=== PATIENT | male | born 1945 | race Caucasian/White ===

== ENCOUNTER 2017-04-10 21:35 | Inpatient (IN) ==
[2017-04-10] MEDS ORDERED: Ipratropium/Albuterol Neb 3 ML IH ONE (21:46)
--- NOTE | 2017-04-10 21:50 | Emergency Department Note ---
Disposition Clinical Impression: COPD exacerbation, Elevated troponin Disposition: Admitted As Inpatient Condition: Good [facility] Provider[facility] - Forms: ED Satisfaction Letter SOB HPI - General Chief Complaint: ED Shortness of Breath/Dyspnea Stated Complaint: Shortness of Breath Time Seen by Provider: 04/10/17 21:39 Source: EMS Mode of arrival: EMS Limitations: no limitations Nursing Notes Reviewed: Yes Vital Signs Reviewed: Yes - History of Present Illness 71-year-old male history of oxygen dependent COPD 4 L continuous, hypertension who presents to the ER due to shortness of breath. Patient states he has developed worsening shortness of breath over the last several days. States he gets more short of breath whenever he is exerting himself or bending over. Patient reports that he was seen in another facility and requested transfer here as [facility] due to his [facility] values. He denies prior history of CAD. He has had some left shoulder discomfort. No fevers at home. No cough. No nausea vomiting or diarrhea. Patient was given a DuoNeb, IV Solu-Medrol, IV fluids and doxycycline prior to arrival. Pt Subjective Complaint: shortness of breath, cough Onset (ago): day(s) Context: recent illness Severity: severe Consistency/Duration: constant Improves with: nothing Worsens with: exertion Known history of: COPD Associated symptoms: Reports: wheezing. Denies: chest pain, fever, cough Treatment prior to arrival: oxygen, bronchodilator Cough present: No Sputum production: No Sputum Amount: None - Related Data Home oxygen amount: 4 liters Home Medications Medication Instructions Recorded Confirmed Acyclovir [Zovirax] 200 mg PO 5XD 06/02/15 06/02/15 Albuterol Sulfate [Albuterol 1 puff IH Q6HR 06/02/15 06/02/15 Inhaler] Aspirin/Calcium Carbonate/Mag 325 mg PO DAILY 06/02/15 06/02/15 [Aspirin Buffered 325 mg Tab] B Complex PO DAILY 06/02/15 Buspirone HCl 10 mg PO BID PRN 06/02/15 06/02/15 Cyclobenzaprine 10 mg PO TID PRN 06/02/15 06/02/15 Formoterol Fumarate 12 mcg BID 06/02/15 06/02/15 Garlic 1 PO DAILY 06/02/15 Lisinopril [Zestril] 40 mg PO DAILY 06/02/15 06/02/15 Metoprolol [Lopressor] 25 mg PO BID 06/02/15 06/02/15 Multivitamin PO DAILY 06/02/15 Neurontin 100 mg PO TID 06/02/15 06/02/15 Omeprazole 20 mg PO BID 06/02/15 06/02/15 PrednisoLONE 10 mg PO DAILY 06/02/15 06/02/15 Pregabalin [Lyrica] 100 mg PO 06/02/15 Promethazine 25 mg PO Q6H PRN 06/02/15 06/02/15 Simvastatin 20 mg PO DAILY 06/02/15 06/02/15 Vitamin C 500 mg PO DAILY 06/02/15 06/02/15 amLODIPine [Norvasc] 5 mg PO DAILY 06/02/15 06/02/15 traZODone [TraZODone] 50 mg PO HS 06/02/15 06/02/15 Previous Rx's Medication Instructions Recorded Aspirin Enteric Coated [Aspirin EC] 81 mg PO DAILY 14 Days tablet. 06/05/15 HYDROcodone/Acet 5/325 mg [[place] 1 tab PO Q6HR PRN #30 tablet 06/05/15 5-325 mg] diazePAM [Valium] 5 mg PO BID #14 tablet 06/05/15 methylPREDNISolone [Medrol] 1 tab PO DAILY #1 packet 06/05/15 Allergies Allergy/AdvReac Type Severity Reaction Status Date / Time codeine AdvReac Heartburn Verified 06/02/15 19:05 All systems ED: reviewed and negative except as stated. Constitutional: Denies: fever Cardiovascular: Denies: chest pain Respiratory: Reports: cough, dyspnea, wheezes. Denies: sputum production Gastrointestinal: Denies: abdominal pain, nausea, vomiting Musculoskeletal: Reports: back pain Past Medical History - Past Medical History Attestation: Yes The following information was validated with the patient. Source: patient Medical history: Reports: arthritis, asthma, COPD, GERD, hypertension, other Psychiatric history: Reports: anxiety, depression - Social History Smoking Status: Former smoker Smokeless Tobacco Status: No Alcohol use: Reports: none Drug use: Reports: none Physical Exam - General Limitations: no limitations General appearance: alert, in no apparent distress - Head Head exam: atraumatic, normocephalic - Eye Eye exam: Present: normal appearance - ENT ENT exam: normal exam - Neck Neck exam: Present: normal inspection, full ROM - Chest Chest inspection: Present: normal inspection, symmetric chest wall rise - Respiratory Respiratory exam: Present: prolonged expiratory phase, other (Diminished breath sounds bilaterally) - Cardiovascular Cardiovascular exam: Present: regular rate, normal rhythm, normal heart sounds - Abdominal Exam Abdominal exam: Present: soft, Non-Tender. Absent: tenderness - Extremities Exam Extremities exam: Present: normal inspection, full ROM - Expanded Upper Extremity Exam Shoulder exam: Present: normal inspection, full ROM Arm exam: Present: normal inspection, full ROM Elbow exam: Present: normal inspection, full ROM Forearm/Wrist exam: Present: normal inspection, full ROM Hand exam: Present: normal inspection, full ROM Vascular exam: Normal: radial pulse - Expanded Lower Extremity Exam Hip/Pelvis exam: Present: normal inspection, full ROM Upper leg exam: Present: normal inspection, full ROM Knee exam: Present: normal inspection, full ROM Lower leg exam: Present: normal inspection, full ROM Ankle exam: Present: normal inspection, full ROM Foot/toe exam: Present: normal inspection, full ROM Neurovascular/Tendon exam: Absent: motor deficit, sensory deficit - Neurological Exam Neurological exam: Present: alert - Psychiatric Psychiatric exam: Present: normal affect - Skin Skin exam: Present: warm, dry, intact Course Course Narrative: Patient seen and examined. I reviewed his prior information showing a chest x- ray with no acute findings. Does have a white count of 14.5. Troponin of 0.08. History chest pain-free. He received aspirin, DuoNeb, Solu-Medrol, IV fluids 1 L prior to arrival. We will order another DuoNeb treatment repeat his labs and admit for COPD exacerbation. Vital Signs Temperature 98.4 F 04/10/17 21:37 Pulse Rate 82 04/10/17 21:37 Respiratory Rate 20 04/10/17 21:37 Blood Pressure 165/83 04/10/17 21:37 O2 Sat by Pulse Oximetry 94 04/10/17 21:37 Temperature 98.4 F 04/10/17 21:37 Pulse Rate 82 04/10/17 21:37 Respiratory Rate 17 04/10/17 22:06 Blood Pressure 165/83 04/10/17 21:37 O2 Sat by Pulse Oximetry 98 04/10/17 22:06 Oxygen Delivery Oxygen Delivery Nasal Cannula Shortness of Breath/Dyspnea - MDM Narrative Medical decision making narrative: Patient presents with several days of shortness of breath and exertional dyspnea. EKG shows no ischemic findings. Chest x-ray from outside facility reported as no acute findings. White count of 14.5 there with a troponin of 0.08. He is currently chest pain-free. Patient given aspirin prior to arrival. Treated with DuoNeb nebs and IV Solu-Medrol. Admitted to the hospitalist service for elevated troponin and COPD exacerbation. - Lab Data Lab results reviewed: Yes I reviewed the patient's lab results. - Radiology Data Radiology results reviewed: Yes I reviewed the patient's radiology results. - EKG Data EKG attestation: Yes I reviewed and interpreted this EKG. EKG results narrative: EKG demonstrates normal sinus rhythm with first-degree AV block with a rate of 94 bpm. Normal axis. Prolonged period of altered 25. Other intervals normal. Normal R-wave progression. T-wave inversions in leads 2, 3, aVF unchanged from previous EKG. No gross ST elevations or depressions. No acute ischemic findings. No significant changes from previous EKG dated 06/03/15. S.B.A.R. - S.B.A.R. Situation: Demographics, MOA Background: Presenting Complaint, Relevant PMH, Meds, & Allergies Assessment: Course and respsone to treatment, Patient/Family Expectation, Pertinant Lab Results, Outstanding Labs Recommendation: Barrier(s) to disposition, Recommendation based on pending studies, treatments, or consults S.B.A.R. Report Given to: Dr. Chang Attestation Statement - Attestation Attestation: I, Jp Dempsey MD, personally evaluated this patient and discussed their management with the resident physician. I reviewed the resident's note and agree with the documented findings, medical decision making, and plan of care. 71-year-old male with history of oxygen-dependent COPD transferred here from [facility] emergency department for exacerbation of COPD. Patient complains of increased shortness of breath for several days. Increased nonproductive cough. Some mild intermittent chest pain but no chest pain at present. Some left shoulder pain and left arm pain intermittently. No fever. [facility] [place] but they would not accept him because he had an elevated troponin during his workup at the other facility. Patient then requested to come to this facility. On examination patient is a well-developed thin elderly male in no acute distress. He is alert and oriented 3. There is no cyanosis or diaphoresis. Chest is nontender to palpation. Breath sounds are markedly decreased bilaterally. No rales or wheezes noted. Heart regular rate and rhythm. Abdomen is soft and nontender with normal bowel sounds. No pedal edema. Labs from the other facility reviewed. Troponin 0.08. Chest x-ray negative. EKG here shows no acute ischemic changes. The hospitalist, Dr. Chang, was consulted and accepted admission of the patient.
[2017-04-10 22:49] LABS: Hematocrit 36.2 % (37.5-50.1); Hemoglobin 11.4 g/dL (12.9-16.9); Immature Granulocytes % 0.5 % (0-4); Lymphocytes % 5.5 %; Mean Corpuscular HGB Conc 31.5 g/dL (31.6-35.5); Mean Corpuscular Volume 69.7 fL (83.0-100.0); Mean Platelet Volume 9.4 fL (9.4-12.4); Monocytes % 0.3 %; Platelet Count 212 K/mcL (140-400); Red Blood Count 5.19 M/mcL (4.19-5.50); Red Cell Distribution Width 16.6 % (11.5-14.5); Segmented Neutrophils % 93.7 %
[2017-04-10 22:54] LABS: INR 1.1; Prothrombin Time 11.6 Seconds (9.4-12.1)
[2017-04-10 22:56] LABS: Lymphocytes # 0.6 K/mcL (0.6-4.6)
[2017-04-10 22:57] LABS: Activated Partial Thrombo Time 27.4 Seconds (26.0-36.0)
[2017-04-10 23:01] LABS: BUN/Creatinine Ratio 18 (6-26); Blood Urea Nitrogen 13 mg/dL (8-26); Calcium 8.9 mg/dL (8.6-10.8); Carbon Dioxide 21 mEq/L (19-29); Chloride 103 mEq/L (98-109); Glucose 154 mg/dL (70-99); Osmolality,Calculated 283 (280-300); Potassium 4.1 mEq/L (3.5-4.5); Sodium 135 mEq/L (136-145); eGFR For African Americans > 60 (> 60); eGFR For Non-African Americans > 60 (> 60)
[2017-04-10 23:15] LABS: Microcytosis Present (Not Present); Platelet Estimate Normal (Normal)
[2017-04-11] MEDS ORDERED: 0.9 % Sodium Chloride 1,000 ML IVC SCH (01:00)
--- NOTE | 2017-04-11 01:06 | Internal Med History&Physical ---
Date of Encounter: 04/11/17 Time of Encounter: 01:04 Assessment and Plan (1) COPD exacerbation Current visit: Yes Status: Acute Acute on chronic hypoxic respiratory failure secondary to acute COPD exacerbation possibly from acute viral bronchitis Continue Solu-Medrol, DuoNeb nebs and oxygen therapy Omeprazole for GI prophylaxis and subcutaneous heparin for DVT prophylaxis. The patient will be admitted for observation. Full code. Time spent on this admission 40 min (2) Elevated troponin Current visit: Yes Status: Acute Likely secondary to demand ischemia Continue aspirin (3) Hypertension Current visit: No Status: Acute Stable Qualifiers: Hypertension type: essential hypertension Qualified Code(s): I10 - Essential (primary) hypertension (4) Paroxysmal atrial fibrillation Current visit: No Status: Acute Offered rate control medications the patient rejected starting any new medications. Risks explained (5) Tobacco use disorder Current visit: No Status: Acute Patient mentioned he quit smoking a few months ago Internal Medicine - H&P: HPI Chief complaint: Shortness of breath Admitted From: Emergency Dept History of present illness: Mr. Rivera is a 71 year old male with a past medical history of COPD oxygen dependent using 4 L at home, depression, hyper tension hyperlipidemia, paroxysmal atrial fibrillation not on anticoagulation who was transferred from [facility] ER 2 [facility] ER after being diagnosed with this acute COPD exacerbation. The patient has been more short of breath for the past few days, he also complains of abdominal pain but says call seem to have more shortness of breath for which he has been taking garlic pills and apparently these are the only things that helped improve his symptoms. He had a CT scan of the chest at [facility] that did not show any new abnormality other than emphysema. Chest x-ray does not show any acute cardiopulmonary disease. Troponin was 0.08 unchanged from the value at [facility]. The patient denies any chest pain at the moment. He signed AGAINST MEDICAL ADVICE in the past from our facility after being recommended cardiac catheterization. Past Med Surg Social Fam HX - Past Medical History Medical history: arthritis, asthma, COPD (Oxygen dependent using 4 L continuously), GERD, hypertension, other (Asbestos exposure, depression, asthma , buccal use, paroxysmal atrial fibrillation not on anticoagulation, systolic dysfunction, diverticulosis, chronic back pain) Psychiatric history: anxiety, depression - Past Surgical History Surgical History: other (Nasal surgery) - Social History Smoking Status: Former smoker Smokeless Tobacco Status: No Alcohol use: none Drug use: none - Family History Father Age at : 70 Cause of : pancreatic cancer Hx Family Cancer: Yes (pancreatic cancer) Mother Age at : 44 Cause of : cardiac Hx Family Cardiac Disorders: Yes Hx Family Respiratory Disorders: Yes Hx Family Cancer: Yes - Additional Family History Additional family history: Mother of a myocardial infarction at the age of 44 Internal Medicine - H&P: Meds Albuterol Sulfate [Albuterol Inhaler] 1 puff IH Q6HR 06/02/15 [History] Aspirin/Calcium Carbonate/Mag [Aspirin Buffered 325 mg Tab] 325 mg PO DAILY [History] B Complex PO DAILY 06/02/15 [History] Garlic 1 PO DAILY 06/02/15 [History] Multivitamin 1 PO DAILY 06/02/15 [History] Omeprazole 20 mg PO BID 06/02/15 [History] Promethazine 25 mg PO Q6H PRN 06/02/15 [History] Simvastatin 20 mg PO DAILY 06/02/15 [History] Vitamin C 500 mg PO DAILY 06/02/15 [History] HYDROcodone/Acet 5/325 mg [[place] 5-325 mg] 1 tab PO Q6HR PRN #30 tablet [Rx] Fish Oil 500 mg BID 04/10/17 [History] Lecithin, Soy [Lecithin Soya] 04/10/17 [History] Vitamin D3 BID 04/10/17 [History] Vitamin E 400 mg PO PRN 04/10/17 [History] clonazePAM [Clonazepam] 0.5 mg PO BID PRN 04/10/17 [History] 3 Allergy/AdvReac Type Severity Reaction Status Date / Time codeine AdvReac Heartburn Verified 06/02/15 19:05 All Systems PM: A 10-system review of systems was performed and is negative for pertinent findings except as documented above in the HPI. Review of systems: Feels weak, no fevers, other systems out of the 10 review were negative - Constitutional Vitals: Temp Pulse Resp BP Pulse Ox 98.1 F 79 18 123/78 97 04/10/17 23:46 04/10/17 23:46 04/10/17 23:46 04/10/17 23:46 04/10/17 23:46 General appearance: Present: A&O X 3 - Head Head exam: Present: atraumatic, normocephalic - Eye Eye exam: Present: PERRL, conjuntiva pink, sclera anicteric Pupils: Present: PERRL - Neck Neck exam general surgery: Present: supple, trachea midline. Absent: lymphadenopathy - Respiratory Respiratory exam: Present: CTAB. Absent: accessory muscle use, rales, rhonchi, wheezes - Cardiovascular Cardiovascular exam: Present: RRR, +S1, +S2. Absent: diastolic murmur, gallop, rubs, systolic murmur - GI/Abdominal GI/Abdominal exam: Present: normal bowel sounds, soft, no peritoneal signs. Absent: distended, tenderness - Extremities Exam Extremities exam: Present: warm, radial pulses palpable and symmetrical. Absent : calf tenderness, cyanotic, pedal edema - Neurological Exam Neurological exam: Present: CN II-XII intact, oriented X3, no focal deficits. Absent: pronater drift, facial droop, speech deficit - Skin Skin exam: Present: dry, intact Internal Med - H&P Results - Labs CBC & Chem 7: 04/10/17 22:41 04/10/17 22:41
[2017-04-11] MEDS ORDERED: Acetaminophen 325 MG TABLET PO PRN (01:11)
[2017-04-11] MEDS ORDERED: Naloxone 0.4 MG/ML INJ IVP PRN (01:11)
[2017-04-11] MEDS ORDERED: Ondansetron 4 MG/2 ML VIAL IVP PRN (01:11)
[2017-04-11] MEDS: *HR* Morphine 2 MG/ML SYRINGE IVP PRN ×2 (01:37→21:50)
[2017-04-11] MEDS: Ipratropium/Albuterol Neb 3 ML IH SCH ×5 (03:23→21:37)
[2017-04-11 04:08] LABS: Hematocrit 34.8 % (37.5-50.1); Hemoglobin 10.8 g/dL (12.9-16.9); Mean Corpuscular Hemoglobin 21.7 pg (28.0-33.3); Mean Corpuscular Volume 69.9 fL (83.0-100.0); Mean Platelet Volume 9.7 fL (9.4-12.4); Platelet Count 208 K/mcL (140-400); Red Blood Count 4.98 M/mcL (4.19-5.50); Red Cell Distribution Width 16.6 % (11.5-14.5)
[2017-04-11 04:25] LABS: BUN/Creatinine Ratio 18 (6-26); Blood Urea Nitrogen 14 mg/dL (8-26); Calcium 8.9 mg/dL (8.6-10.8); Carbon Dioxide 24 mEq/L (19-29); Chloride 105 mEq/L (98-109); Chol/HDL Ratio 2.8 (0-4.9); Glucose 175 mg/dL (70-99); Osmolality,Calculated 293 (280-300); Potassium 4.5 mEq/L (3.5-4.5); Sodium 139 mEq/L (136-145); eGFR For African Americans > 60 (> 60); eGFR For Non-African Americans > 60 (> 60)
[2017-04-11] MEDS: *HR* Heparin 5,000 UNIT/ML VIAL SQ SCH ×3 (06:22→21:49)
[2017-04-11] MEDS: MethylPREDNISolone 40 MG/ML VIAL IVP SCH ×2 (09:46→17:47)
[2017-04-11] MEDS: clonazePAM 0.5 MG TABLET PO PRN ×2 (11:39→17:47)
[2017-04-11] MEDS: *HR* HYDROcodone/Acet 5/325 mg TABLET PO PRN ×2 (11:39→17:48)
--- NOTE | 2017-04-11 16:00 | Event Note ---
Date of Encounter: 04/11/17 Time of Encounter: 16:00 71-year-old male with history of COPD, paroxysmal atrial fibrillation, admitted with worsening shortness of breath. Patient seen and examined at bedside. Reports exertional dyspnea. Does use oxygen at home. Chest-S1, S2 heard. Lungs with bilateral coarse rhonchorous breath sounds. Acute exacerbation of COPD-continue IV steroids, taper down as tolerated. Continue scheduled bronchodilators and supplemental oxygen. Received influenza immunization this year. Chest x-ray shows no evidence of pneumonia. Elevated troponin-reviewed previous troponins, patient noted to have mild troponin elevation around 0.08, likely related to underlying COPD. Continue telemetry monitoring. Paroxysmal atrial fibrillation-patient was recommended anticoagulation and rate control medications in the past, which he refused. Patient continues to have certain ideas regarding his health, refusing most medications and relying on natural/herbal supplements, Epsom salts, etc.
[2017-04-12] MEDS: *HR* HYDROcodone/Acet 5/325 mg TABLET PO PRN ×3 (00:21→13:26)
[2017-04-12] MEDS: MethylPREDNISolone 40 MG/ML VIAL IVP SCH ×3 (00:22→16:12)
[2017-04-12] MEDS: Ipratropium/Albuterol Neb 3 ML IH SCH ×4 (04:35→21:18)
[2017-04-12] MEDS: *HR* Heparin 5,000 UNIT/ML VIAL SQ SCH ×2 (06:47→13:28)
[2017-04-12] MEDS: clonazePAM 0.5 MG TABLET PO PRN ×2 (08:33→19:58)
[2017-04-12 12:25] LABS: Hematocrit 39.8 % (37.5-50.1); Hemoglobin 12.3 g/dL (12.9-16.9); Mean Corpuscular HGB Conc 30.9 g/dL (31.6-35.5); Mean Corpuscular Hemoglobin 21.8 pg (28.0-33.3); Mean Corpuscular Volume 70.6 fL (83.0-100.0); Mean Platelet Volume 9.2 fL (9.4-12.4); Platelet Count 238 K/mcL (140-400); Red Blood Count 5.64 M/mcL (4.19-5.50); Red Cell Distribution Width 17.5 % (11.5-14.5)
[2017-04-12 12:38] LABS: BUN/Creatinine Ratio 25 (6-26); Blood Urea Nitrogen 20 mg/dL (8-26); Calcium 9.8 mg/dL (8.6-10.8); Carbon Dioxide 28 mEq/L (19-29); Chloride 99 mEq/L (98-109); Glucose 117 mg/dL (70-99); Osmolality,Calculated 290 (280-300); Potassium 4.1 mEq/L (3.5-4.5); Sodium 138 mEq/L (136-145); eGFR For African Americans > 60 (> 60); eGFR For Non-African Americans > 60 (> 60)
[2017-04-12] MEDS ORDERED: traZODone 50 MG TABLET PO PRN (15:34)
[2017-04-12] MEDS ORDERED: clonazePAM 0.5 MG TABLET PO ONE (15:51)
--- NOTE | 2017-04-12 16:58 | Internal Med Progress Note ---
Date of Encounter: 04/12/17 Time of Encounter: 16:56 - Assessment and plan (1) COPD (chronic obstructive pulmonary disease) Current Visit: No Status: Acute Assessment and plan: Asher Rivera is a 71-year-old male with past medical history COPD, paroxysmal A. fib and hypertension who presented to [facility] on with complaints of shortness of breath. He was found to be in acute COPD exacerbation and was admitted for further workup and treatment. 1. Acute COPD exacerbation: Current smoker. Wears O2 [id number]. With increasing shortness of breath and wheezing on admission. CXR negative. No increase in sputum production, hold on ATB. Continue IV steroids and DuoNeb's. 2. Elevated troponin: Troponin peaked at 0.08 and trended down. Per chart review patient appears to have chronically elevated troponin. Last stress test 05/2015. Asymptomatic, denies chest pain. Furthermore patient is declining any further testing including a stress test or left heart catheter. He does not want cardiology consult. Monitor on telemetry. 3. Paroxysmal atrial fibrillation: per hx. rate controlled. He refuses anticoagulation. EKG pending. 4. Anxiety: Per history. Patient appears very anxious on exam. Continue home Klonopin. 5. DVT prophylaxis: Heparin Qualifiers: COPD type: COPD with acute exacerbation Qualified Code(s): J44.1 - Chronic obstructive pulmonary disease with (acute) exacerbation (2) Hypertension Current Visit: No Status: Acute Qualifiers: Hypertension type: essential hypertension Qualified Code(s): I10 - Essential (primary) hypertension (3) Paroxysmal atrial fibrillation Current Visit: No Status: Acute (4) Tobacco use disorder Current Visit: No Status: Acute - Subjective Interval history: Seen and examined at bedside. He says usually. Information obtained from chart review and patient report. He is very anxious and difficult to keep focused on exam. He does say he feels significantly improved. Still with shortness of breath but much better from when he presented. He is requesting a sleeping aid. No chest pain. He is declining further cardiac workup for elevated troponin. - Constitutional Vitals: Temp Pulse Resp BP Pulse Ox 98.3 F 68 18 151/77 95 04/12/17 15:45 04/12/17 15:45 04/12/17 15:54 04/12/17 15:45 04/12/17 15:54 General appearance: Present: A&O X 3 - Head Head exam: Present: atraumatic, normocephalic - Eye Eye exam: Present: PERRL, conjuntiva pink, sclera anicteric Pupils: Present: PERRL - Neck Neck exam general surgery: Present: supple, trachea midline. Absent: lymphadenopathy - Respiratory Respiratory exam: Present: wheezes. Absent: accessory muscle use, rales, rhonchi Additional comments: O2 via nasal cannula. Appears mildly dyspneic. Scant wheezing. - Cardiovascular Cardiovascular exam: Present: RRR, +S1, +S2. Absent: diastolic murmur, gallop, rubs, systolic murmur - GI/Abdominal GI/Abdominal exam: Present: normal bowel sounds, soft, no peritoneal signs. Absent: distended, tenderness - Extremities Exam Extremities exam: Present: warm, radial pulses palpable and symmetrical. Absent : calf tenderness, cyanotic, pedal edema - Neurological Exam Neurological exam: Present: CN II-XII intact, oriented X3, no focal deficits. Absent: pronater drift, facial droop, speech deficit - Skin Skin exam: Present: dry, intact Internal Medicine: Result - Labs CBC & Chem 7: 04/12/17 12:18 04/12/17 12:18 Labs: Short CBC 04/12/17 Range/Units 12:18 WBC 19.6 H D (4.3-11.1) K/mcL Hgb 12.3 L D (12.9-16.9) g/dL Hct 39.8 (37.5-50.1) % Plt Count 238 (140-400) K/mcL BMP 04/12/17 12:18 Sodium 138 Potassium 4.1 Chloride 99 Carbon Dioxide 28 BUN 20 Creatinine 0.79 Glucose 117 H Calcium 9.8 Cardiac Enzymes 04/12/17 Range/Units 12:18 Troponin I 0.04 H* (0-0.03) ng/mL - ABG Interpretation ABG results: PT/INR, D-dimer PT 11.6 Seconds (9.4-12.1) 04/10/17 22:41 Consult Discharge Plan - Plan [facility]errals: [facility]Primary Care Provider[facility] -
[2017-04-12] MEDS ORDERED: traZODone 50 MG TABLET PO SCH (21:00)
[2017-04-13] MEDS: *HR* Heparin 5,000 UNIT/ML VIAL SQ SCH ×2 (00:41→05:59)
[2017-04-13] MEDS: MethylPREDNISolone 40 MG/ML VIAL IVP SCH ×2 (00:41→09:07)
[2017-04-13] MEDS: Ipratropium/Albuterol Neb 3 ML IH SCH ×2 (04:24→10:17)
[2017-04-13] MEDS: *HR* HYDROcodone/Acet 5/325 mg TABLET PO PRN (06:11)
[2017-04-13 06:32] VITALS: BP 101/65
[2017-04-13] MEDS ORDERED: Capsaicin 0.025% 60 GM TUBE TP PRN (07:43)
[2017-04-13 07:49] LABS: Hematocrit 38.9 % (37.5-50.1); Hemoglobin 12.2 g/dL (12.9-16.9); Mean Corpuscular HGB Conc 31.4 g/dL (31.6-35.5); Mean Corpuscular Hemoglobin 21.7 pg (28.0-33.3); Mean Corpuscular Volume 69.3 fL (83.0-100.0); Platelet Count 226 K/mcL (140-400); Red Blood Count 5.61 M/mcL (4.19-5.50); Red Cell Distribution Width 16.6 % (11.5-14.5)
--- NOTE | 2017-04-13 08:58 | Discharge Summary ---
Date of Encounter: 04/13/17 Time of Encounter: 08:51 - Discharge Diagnosis (1) COPD (chronic obstructive pulmonary disease) Priority: Primary Status: Acute Comments: Asher Rivera is a 71-year-old male with past medical history COPD, paroxysmal A. fib and hypertension who presented to [facility] on with complaints of shortness of breath. He was found to be in acute COPD exacerbation and was admitted for further workup and treatment. 1. Acute COPD exacerbation: Current smoker. Wears O2 [id number]. With increasing shortness of breath and wheezing on admission. CXR negative. Sx's significantly improved with IV steroids. No worsening cough or increase in sputum production. Afebrile, WBC 19K (secondary to steroids, patient refused lactic acid). No indication for ATB. Smoking cessation strongly advised. Steroid taper at discharge. Continue home nebulizers, inhalers. Recommend follow-up with PCP within one week 2. Elevated troponin: Troponin peaked at 0.08 and trended down. Per chart review patient appears to have chronically elevated troponin. Last stress test 05/2015 (unable to see results). Asymptomatic, denied chest pain. EKG with known IVCD and nonspecific ST-T changes. Patient does not follow with Cardiology outpatient. He is declining further workup or treatment. He prefers natural/holistic approach. Recommend establishing care with cardiology at [place]. 3. Paroxysmal atrial fibrillation: per hx. EKG with NSR, known IVCD. Rate controlled. He refuses anticoagulation. 4. Anxiety: Per history. Continue home Klonopin. 5. Leukocytosis: WBC 19K, in the setting of steroids. Hemodynamically stable; afebrile no tachycardia or hypotension. Patient declined lactic acid level. Recommend follow-up with PCP within one week. Qualifiers: COPD type: COPD with acute exacerbation Qualified Code(s): J44.1 - Chronic obstructive pulmonary disease with (acute) exacerbation (2) Hypertension Priority: Primary Status: Acute Qualifiers: Hypertension type: essential hypertension Qualified Code(s): I10 - Essential (primary) hypertension (3) Paroxysmal atrial fibrillation Priority: Primary Status: Acute (4) Tobacco use disorder Priority: Primary Status: Acute - Discharge Medications Prescriptions: predniSONE [PredniSONE] 10 mg PO DAILY #40 tablet Home Medications: Acyclovir [Zovirax] 200 mg PO 5XD 04/11/17 [History] Aspirin 325 mg PO DAILY 11/06/17 [History] Cholecalciferol (D-3) [Vitamin D] 2,000 unit PO DAILY 04/11/17 [History] Diclofenac Sodium [Voltaren] 50 mg PO Q8HR 04/11/17 [History] HYDROcodone/Acet 5/325 mg [[place] 5-325 mg] 1 tab PO Q6H PRN 04/11/17 [History] Ipratropium/Albuterol Neb [Duoneb] 3 ml IH Q6HR 04/11/17 [History] Multivit-Min/FA/Lycopen/Lutein [A Thru Z Select Multivit Tab] 1 tab PO DAILY 11/20 [History] Olodaterol HCl [Striverdi Respimat] 2 puff IH DAILY 04/11/17 [History] [place]-3/Dha/Epa/Fish Oil [Fish Oil 1,000 mg Softgel] 1 cap PO DAILY 04/11/17 [ History] Omeprazole [PriLOSEC] 20 mg PO BIDAC 04/11/17 [History] Promethazine [Phenergan] 25 mg PO Q6HR 04/11/17 [History] Valerian Root 200 mg PO HS 04/11/17 [History] Vitamin E 400 unit PO DAILY 04/11/17 [History] amLODIPine [Norvasc] 5 mg PO DAILY 04/11/17 [History] clonazePAM [Klonopin] 2 mg PO BID PRN 04/11/17 [History] predniSONE [PredniSONE] 10 mg PO DAILY #40 tablet 04/13/17 [Rx] Allergies/Adverse Reactions: 3 Allergy/AdvReac Type Severity Reaction Status Date / Time codeine AdvReac Heartburn Verified 06/02/15 19:05 Date of admission: 04/11/17 15:48 Primary care physician: PCP [place] Discharging clinician: Katherine Ferguson Anticipated date of discharge: 04/13/17 - Patient Status Disposition: Home, Self-Care Condition: Fair Functional capacity at discharge: independent ambulation Overall status at discharge: patient is back to baseline - Discharge Instructions Instructions: Prednisone (By mouth), Atrial Fibrillation (DC), Chronic Obstructive Pulmonary Disease (DC) [facility] Care Provider[facility] - Additional Instructions: Please call your primary care physician next business day within 24 hours to schedule follow-up appointment It is recommended to establish care with a mica spreader (heart doctor) - Diet and Activity Activity: increase activity as tolerated Diet: advance to your usual diet Interval History: Seen and examined at bedside. Patient says he feels significantly better and wants to go home today. Still has shortness of breath but feels he is back to baseline. He is still refusing further cardiac testing and cardiology consult. He thinks his elevated troponin is due to him not sleeping well. Not follow with cardiology at the [place], I strongly recommended establishing care. He still refusing anticoagulation. Does not feel he is in A. fib enough to warrant anticoagulation. He prefers holistic natural treatment versus traditional medicine. Hospital course: See assessment and plan for hospital course - Time Spent with Patient Total time spent providing and/or coordinating discharge services: Greater than 30 minutes (38 minutes spent on discharge) - Constitutional Vitals: Temp Pulse Resp BP Pulse Ox 98.3 F 96 20 101/65 96 04/13/17 06:30 04/13/17 06:30 04/13/17 06:30 04/13/17 06:30 04/13/17 06:30 General appearance: Present: mild distress, A&O X 3 - Head Head exam: Present: atraumatic, normocephalic - Eye Eye exam: Present: PERRL, conjuntiva pink, sclera anicteric Pupils: Present: PERRL - Neck Neck exam general surgery: Present: supple, trachea midline. Absent: lymphadenopathy - Respiratory Respiratory exam: Present: CTAB. Absent: accessory muscle use, rales, rhonchi, wheezes Additional comments: Lungs diminished but clear to rotation. No wheezing or rhonchi noted. Appears mildly dyspneic - Cardiovascular Cardiovascular exam: Present: RRR, +S1, +S2. Absent: diastolic murmur, gallop, rubs, systolic murmur - GI/Abdominal GI/Abdominal exam: Present: normal bowel sounds, soft, no peritoneal signs. Absent: distended, tenderness - Extremities Exam Extremities exam: Present: warm, radial pulses palpable and symmetrical. Absent : calf tenderness, cyanotic, pedal edema - Neurological Exam Neurological exam: Present: CN II-XII intact, oriented X3, no focal deficits. Absent: pronater drift, facial droop, speech deficit - Psychiatric Psychiatric exam: Present: anxious - Skin Skin exam: Present: dry, intact
--- NOTE | 2017-04-14 18:10 | Electrocardiograph Report ---
[place] [id number] Test Date: 2017-04-10 Pat Name: Asher Rivera Department: 103 Room: [facility] Gender: M Manager Bilingual: MATIAS : 1945 Requested By: Edmundo Daniel Order Number: [id number] Reading MD: Emiliana Caro Measurements Intervals [place] Rate: 94 P: 83 GA: 225 QRS: 77 QRSD: 93 T: 91 QT: 321 QTc: 372 Interpretive Statements SINUS RHYTHM WITH FIRST DEGREE AV BLOCK NONSPECIFIC T-WAVE ABNORMALITY Electronically Signed On 04-14-2017 18:08:43 EST by Emiliana Caro
== END 2017-04-13 12:01 | disposition home or self-care (01) | DRG 190 ==
LOC: 3NENU 21:35 → EMEROO 21:35 → SUATTDRO 23:12 → 3NENU 23:30
PROVIDERS: ADMIT Pediatrics; ATTEND Internal Medicine

== ENCOUNTER 2018-11-03 15:41 | Inpatient (IN) ==
[2018-11-03] MEDS ORDERED: Naloxone 0.4 MG/ML INJ IVP PRN (17:54)
[2018-11-03] MEDS ORDERED: traMADol 50 MG TABLET PO PRN (17:54)
--- NOTE | 2018-11-03 18:23 | Internal Med History&Physical ---
Date of Encounter: 11/03/18 Time of Encounter: 18:17 Internal Medicine - H&P: HPI Chief complaint: cardiac arrythmia Plans for Post Hospital Care: Home History of present illness: Mr. Rivera is a 73 year old male PMH of tobacco abuse, chronic hypoxemic respiratory failure on 3 litter of O2 by nasal cannula, COPD, depression, HLD, A.fib? and chronic back pain. Patient transferred to [facility] from the [facility] due to A.fib with 4 runs of Vtach. Patient reported that he had been feeling short of breath for about a month, and that his shortness of breath was significantly worse on Tuesday that he could barely walk without becoming very short of breath. He decided to go the [facility] where he was admitted. Reports increased non-productive cough, denies fever or chills. [facility] the [facility] went into A.fib w/ RvR and also had 4 runs of VTach, was found to have a trop 0.093 and the patient was transferred to [facility] for cardiology evaluation and further management. Patient denies chest pain, palpitation or light headedness during this episodes. Reports improvement in his breathing. Past Med Surg Social Fam HX - Past Medical History Medical history: arthritis, asthma, COPD, GERD, hypertension, other Additional medical history: diverticulitis , bronchitis Psychiatric history: anxiety, depression - Past Surgical History Surgical History: other Additional surgical history: Abd Aneurysm, Nose melanoma removed - Social History Smoking Status: Former smoker Smokeless Tobacco Status: No Alcohol use: none Drug use: none - Family History Father Hx Family Cancer: Yes (pancreatic cancer) Mother Hx Family Cardiac Disorders: Yes ([place]) Hx Family Respiratory Disorders: Yes Hx Family Cancer: Yes Internal Medicine - H&P: Meds Acyclovir [Zovirax] 200 mg PO 5XD 04/11/17 [History] Aspirin 325 mg PO DAILY 04/11/17 [History] Cholecalciferol (D-3) [Vitamin D] 2,000 unit PO DAILY 04/11/17 [History] Diclofenac Sodium [Voltaren] 50 mg PO Q8HR 04/11/17 [History] HYDROcodone/Acet 5/325 mg [[place] 5-325 mg] 1 tab PO Q6H PRN 04/11/17 [History] Ipratropium/Albuterol Neb [Duoneb] 3 ml IH Q6HR 11/06/17 [History] Multivit-Min/FA/Lycopen/Lutein [A Thru Z Select Multivit Tab] 1 tab PO DAILY 04/11/17 [History] Olodaterol HCl [Striverdi Respimat] 2 puff IH DAILY 04/11/17 [History] [place]-3/Dha/Epa/Fish Oil [Fish Oil 1,000 mg Softgel] 1 cap PO DAILY 04/11/17 [History] Omeprazole [PriLOSEC] 20 mg PO BIDAC 04/11/17 [History] Promethazine [Phenergan] 25 mg PO Q6HR 04/11/17 [History] Valerian Root 200 mg PO HS 04/11/17 [History] Vitamin E 400 unit PO DAILY 04/11/17 [History] amLODIPine [Norvasc] 5 mg PO DAILY 04/11/17 [History] clonazePAM [Klonopin] 2 mg PO BID PRN 04/11/17 [History] predniSONE [PredniSONE] 10 mg PO DAILY #40 tablet 04/13/17 [Rx] Allergy/AdvReac Type Severity Reaction Status Date / Time codeine AdvReac Heartburn Verified 06/02/15 19:05 All Systems PM: A 10-system review of systems was performed and is negative for pertinent findings except as documented above in the HPI. - Constitutional Constitutional: weakness, no chills, no fever(s) - EENT Eyes: no irritation, no pain Nose, mouth and throat: no dental pain, no mouth pain - Cardiovascular Cardiovascular ROS IM: dyspnea, dyspnea on exertion, no chest pain, no edema, no lightheadedness, no orthopnea, no palpitations, no paroxysmal nocturnal dyspnea - Respiratory Respiratory: cough, dyspnea on exertion, wheezing, no chest congestion, no excessive phlegm production - Gastrointestinal Gastrointestinal: no abdominal pain, no nausea, no vomiting - Genitourinary Genitourinary ROS male: no dysuria, no urinary frequency, no urinary urgency - Musculoskeletal Musculoskeletal ROS IM: no atrophy - Integumentary Integumentary IM: no erythema - Neurological Neurological ROS: no headache(s), no weakness - Psychiatric Psychiatric: no anxiety, no hopelessness - Endocrine Endocrine IM: no cold intolerance, no excessive sweating, no polydipsia - Hematologic/Lymphatic Hematologic/Lymphatic: no lymphadenopathy - Allergic/Immunologic Allergic/Immunologic: no GI upset with certain foods - Constitutional Vitals: Temp Pulse Resp BP Pulse Ox 98.9 F 62 15 141/81 96 11/03/18 18:10 11/03/18 18:10 11/03/18 18:10 11/03/18 18:10 11/03/18 18:10 Exam: Vitals: Reviewed General: Alert and oriented x4. In mild distress due to shortness of breath Skin: Normal color, no rash, no lesions. HEENT: EOM, pupils equal, round and reactive. Cardiovascular: RRR, normal S1 & S2, no rubs, murmurs or gallops. Lungs: decreased breath sounds b/l, minimal expiratory wheezes b/l, no crackles. Abdomen: Soft, non-tender, no rigidity. Extremities: No deformity, no edema or tenderness, no joint swelling or clubbing. Neurological: Normal cognition and motor skills. Rest of the physical exam is non contributory - Assessment and Plan (1) COPD exacerbation Current Visit: No Status: Acute Assessment and plan: patient with minimal expiratory wheezing b/l. Plan: Started on bronchodilators Q4RT scheduled Solu-Medrol 40mg/IV Q12hr started on empiric antibiotics coverage with levofloxacin 750mg/PO daily Sputum culture and gram stain O2 by nasal cannula, titrate for O2Sat >92% incentive spirometry as tolerated. urine for atypical organism (2) DVT prophylaxis Current Visit: Yes Status: Acute Assessment and plan: started on heparin subq (3) Hypertension Current Visit: No Status: Chronic Assessment and plan: will resume patient's home dose of amlodipine 5mg/PO daily. Qualifiers: Hypertension type: essential hypertension Qualified Code(s): I10 - Essential (primary) hypertension (4) Paroxysmal atrial fibrillation Current Visit: No Status: Acute Assessment and plan: as per transfer note patient has 4 runs of Vtach and had one episode of a.fib with rvr. Plan lab aide serial trops cardiology consulted started on low bb. - Time Spent With Patient Total time spent is greater than 50% in coordination of care (as documented) at patient's floor/unit and/or counseling patient: Greater than 35 minutes (45)
[2018-11-03] MEDS: MethylPREDNISolone 40 MG/ML VIAL IVP SCH (18:50)
[2018-11-03] MEDS: levoFLOXacin 750 MG TABLET PO SCH (18:50)
[2018-11-03 19:15] LABS: Basophils # 0.1 K/mcL (0.0-0.2); Basophils % 0.5 %; Eosinophils % 0.2 %; Hematocrit 37.5 % (37.5-50.1); Hemoglobin 11.5 g/dL (12.9-16.9); Immature Granulocytes % 5.8 % (0-4); Lymphocytes # 1.8 K/mcL (0.6-4.6); Lymphocytes % 10.2 %; Mean Corpuscular HGB Conc 30.7 g/dL (31.6-35.5); Mean Corpuscular Hemoglobin 22.3 pg (28.0-33.3); Mean Corpuscular Volume 72.7 fL (83.0-100.0); Monocytes # 1.4 K/mcL (0.0-1.3); Monocytes % 7.7 %; Neutrophils # 13.5 K/mcL (1.6-8.9); Nucleated Red Blood Cells 0.3 /100 WBC (0); Platelet Count 250 K/mcL (140-400); Red Blood Count 5.16 M/mcL (4.19-5.50); Segmented Neutrophils % 75.6 %
[2018-11-03 19:32] LABS: BUN/Creatinine Ratio 27 (6-26); Blood Urea Nitrogen 27 mg/dL (8-23); Calcium 8.9 mg/dL (8.6-10.3); Carbon Dioxide 33 mEq/L (23-29); Chloride 99 mEq/L (98-107); Glucose 122 mg/dL (70-105); Magnesium 2.2 mg/dL (1.6-2.6); Osmolality,Calculated 284 (280-300); Phosphorous 3.3 mg/dL (2.7-4.5); Potassium 4.9 mEq/L (3.5-5.1); Sodium 134 mEq/L (136-145); eGFR For Non-African Americans > 60 (> 60)
[2018-11-03] MEDS: Ipratropium/Albuterol Neb 3 ML IH SCH ×2 (19:37→23:39)
[2018-11-03 19:49] LABS: Basophilic Stippling 1+ (Not Present); Polychromasia 1+ (Not Present)
[2018-11-03 20:17] LABS: INR 1.1; Prothrombin Time 12.1 Seconds (9.4-12.1)
[2018-11-03 20:19] LABS: Activated Partial Thrombo Time 24.4 Seconds (26.0-36.0)
[2018-11-03] MEDS: *HR* Heparin 5,000 UNIT/ML VIAL SQ SCH (21:21)
[2018-11-03] MEDS: Melatonin 3 MG TABLET PO SCH (21:21)
[2018-11-04] MEDS: *HR* HYDROcodone/Acet 5/325 mg TABLET PO PRN ×4 (00:54→20:56)
[2018-11-04] MEDS: Ipratropium/Albuterol Neb 3 ML IH SCH ×6 (03:54→23:33)
[2018-11-04] MEDS: *HR* Heparin 5,000 UNIT/ML VIAL SQ SCH ×3 (05:46→20:56)
[2018-11-04] MEDS: MethylPREDNISolone 40 MG/ML VIAL IVP SCH (05:56)
--- NOTE | 2018-11-04 06:07 | Cardiology Consult Note ---
Date of Encounter: 11/04/18 Time of Encounter: 06:00 Assessment and Plan (1) Nonsustained ventricular tachycardia Current Visit: Yes Status: Acute Uptitrate cardioselective beta taran (2) Dyspnea Current Visit: No Status: Acute Qualifiers: Dyspnea type: unspecified Qualified Code(s): R06.00 - Dyspnea, unspecified (3) Paroxysmal atrial fibrillation Current Visit: No Status: Acute (4) Tobacco use disorder Current Visit: No Status: Acute Discussion w patient/family: The assessment and plan as outlined above was discussed with the patient and/or family members who expressed understanding and agreement. All questions were answered. Thank you for involving us in the care of your patient. Please call with any questions. History of Present Illness Consult date: 11/04/18 Consult reason: NSVT Chief complaint: dyspnea History of present illness: Mr. Rivera is a 73 year old male with Atrial fibrillation, no previous CAD, COPD dependent on 3L 2/2 hypoxic resp failure chronic, chronic back pain transferred from NH with NSVT on telemetry. Patient initially presented with dyspnea. He denies chest/jaw/arm discomfort or syncope. Past Med Surg Social Fam HX - Past Medical History Medical history: arthritis, asthma, COPD, GERD, hypertension, other Additional medical history: diverticulitis , bronchitis Psychiatric history: anxiety, depression - Past Surgical History Surgical History: other Additional surgical history: Abd Aneurysm, Nose melanoma removed - Social History Smoking Status: Former smoker Smokeless Tobacco Status: No Alcohol use: none Drug use: none - Family History Father Hx Family Cancer: Yes (pancreatic cancer) Mother Hx Family Cardiac Disorders: Yes ([place]) Hx Family Respiratory Disorders: Yes Hx Family Cancer: Yes Medications and Allergies Acyclovir [Zovirax] 200 mg PO 5XD 04/11/17 [History] Aspirin 325 mg PO DAILY 04/11/17 [History] Cholecalciferol (D-3) [Vitamin D] 2,000 unit PO DAILY 04/11/17 [History] Diclofenac Sodium [Voltaren] 50 mg PO Q8HR 04/11/17 [History] HYDROcodone/Acet 5/325 mg [[place] 5-325 mg] 1 tab PO Q6H PRN 04/11/17 [History] Ipratropium/Albuterol Neb [Duoneb] 3 ml IH Q6HR 04/11/17 [History] Multivit-Min/FA/Lycopen/Lutein [A Thru Z Select Multivit Tab] 1 tab PO DAILY 04/11/17 [History] Olodaterol HCl [Striverdi Respimat] 2 puff IH DAILY 04/11/17 [History] [place]-3/Dha/Epa/Fish Oil [Fish Oil 1,000 mg Softgel] 1 cap PO DAILY 04/11/17 [History] Omeprazole [PriLOSEC] 20 mg PO BIDAC 04/11/17 [History] Promethazine [Phenergan] 25 mg PO Q6HR 04/11/17 [History] Valerian Root 200 mg PO HS 04/11/17 [History] Vitamin E 400 unit PO DAILY 04/11/17 [History] amLODIPine [Norvasc] 5 mg PO DAILY 04/11/17 [History] clonazePAM [Klonopin] 2 mg PO BID PRN 04/11/17 [History] predniSONE [PredniSONE] 10 mg PO DAILY #40 tablet 04/13/17 [Rx] Allergy/AdvReac Type Severity Reaction Status Date / Time codeine AdvReac Heartburn Verified 06/02/15 19:05 All Systems Review: The remainder of the systems were reviewed and are negative - Constitutional Constitutional: no chills, no fever(s) - EENT Eyes: no blurred vision, no loss of vision Nose, mouth and throat: no bleeding gums, no epistaxis - Cardiovascular Cardiovascular: dyspnea at rest, dyspnea on exertion, no chest pain at rest, no chest pain with exertion - Respiratory Respiratory: dyspnea, no hemoptysis - Gastrointestinal Gastrointestinal: no hematemesis, no hematochezia - Genitourinary Genitourinary: no hematuria, no nocturia - Musculoskeletal Musculoskeletal: no arthralgias, no myalgias - Integumentary Integumentary: no rash, no unusual bruising - Neurological Neurological: no focal weakness, no syncope - Psychiatric Psychiatric: no anxiety, no depression - Hematological/Lymphatic Hematologic/Lymphatic: no easy bleeding, no easy bruising Physical Examination Vital Signs, Last 4 Hours Temp Pulse Resp BP Pulse Ox 11/04/18 04:11 97.9 F 72 16 106/64 91 11/04/18 03:55 18 95 General: Conversant HEENT: Atraumatic Neck: No JVD Cardiac: Reg Rate and Rhythm Lungs: Other (wheeze) Neuro: Alert and responsive Abdomen: Soft Skin: No rashes noted on visualized skin Musculoskeletal: No Chest Wall Tenderness Extremities: No Edema Results 11/03/18 18:53 11/03/18 18:53 Lab Results 11/03/18 11/03/18 11/03/18 18:53 18:53 18:53 WBC 17.9 H Hgb 11.5 L Hct 37.5 Plt Count 250 INR 1.1 APTT 24.4 L Sodium Potassium Chloride Carbon Dioxide BUN Creatinine Glucose Calcium Magnesium 2.2 Troponin I 11/03/18 11/03/18 11/04/18 18:53 18:53 00:15 WBC Hgb Hct Plt Count INR APTT Sodium 134 L Potassium 4.9 Chloride 99 Carbon Dioxide 33 H BUN 27 H Creatinine 1.00 Glucose 122 H Calcium 8.9 Magnesium Troponin I < 0.03 < 0.03 - EKG Interpretation EKG results cardiology: personally reviewed Consult Discharge Plan - Plan [facility]errals: [facility] [Primary Care Provider] -
[2018-11-04] MEDS ORDERED: Metoprolol XL (24 HR) Succ 25 MG TAB.ER.24H PO SCH (09:00)
[2018-11-04] MEDS: levoFLOXacin 750 MG TABLET PO SCH (09:03)
[2018-11-04] MEDS: Metoprolol XL (24 HR) Succ 25 MG TAB.ER.24H PO SCH (09:03)
[2018-11-04] MEDS: amLODIPine 5 MG TABLET PO SCH (09:04)
[2018-11-04] MEDS: Aspirin Enteric Coated 81 MG Tablet PO SCH (09:04)
--- NOTE | 2018-11-04 12:41 | Internal Med Progress Note ---
Hospitalist Progress Note - Encounter Date of Encounter: 11/04/18 Time of Encounter: 12:38 - Subjective Interval History: I have seen and evaluated the patient at bedside. he reports his breathing is almost back to his baseline. denies chest pain. nausea, vomiting or shortness of breath. denies light headedness. - Exam Vitals: Temp Pulse Resp BP Pulse Ox 97.9 F 61 14 131/62 99 11/04/18 11:30 11/04/18 11:30 11/04/18 11:30 11/04/18 11:30 11/04/18 11:30 Exam: Vitals: Reviewed General: Alert and oriented x4. in no distress Cardiovascular: RRR, normal S1 & S2, no rubs, murmurs or gallops. Lungs: decreased breath sounds b/l, no wheezes b/l, no crackles. Abdomen: Soft, non-tender, no rigidity. NABS in all 4 quadrants Extremities: No edema Neurological: No focal neurological abnormalities Rest of the physical exam is non contributory - Assessment and Plan (1) COPD exacerbation Current Visit: No Status: Acute Assessment and Plan: chest is clear to auscultation. DC methyl-prednisolone will start prednisone 40mg/PO daiy continue bronchodilators empirically on levofloxacin 750mg/PO daily. will add symbicort (2) Hypertension Current Visit: No Status: Chronic Assessment and Plan: BP is well controlled. on amlodipine 5mg/PO daily and a bb. (3) Paroxysmal atrial fibrillation Current Visit: No Status: Chronic Assessment and Plan: patient is on a bb. CHADSVASC 3. will defer anticoagulation to cardiology team on aspirin 81mg/PO daily (4) Nonsustained ventricular tachycardia Current Visit: Yes Status: Acute Assessment and Plan: metoprolol increased to 25mg/PO daily per cardiology recommendations. DVT Prophylaxis: on heparin subq. - Summary of Assessment and Plan Summary of Assessment and Plan: patient to remain in the hospital for evaluation on telemetry for at least 24 more hours. - Time Spent with Patient Total time spent is greater than 50% in coordination of care (as documented) at patient's floor/unit and/or counseling patient: Greater than 35 minutes (40) Plan of Care Discussed with: patient (and the nurse.) Internal Medicine: Result - Labs CBC & Chem 7: 11/03/18 18:53 11/03/18 18:53 Labs: Short CBC 11/03/18 Range/Units 18:53 WBC 17.9 H (4.3-11.1) K/mcL Hgb 11.5 L (12.9-16.9) g/dL Hct 37.5 (37.5-50.1) % Plt Count 250 (140-400) K/mcL Neutrophils # 13.5 H (1.6-8.9) K/mcL BMP 11/03/18 18:53 Sodium 134 L Potassium 4.9 Chloride 99 Carbon Dioxide 33 H BUN 27 H Creatinine 1.00 Glucose 122 H Calcium 8.9 Cardiac Enzymes 11/03/18 11/04/18 11/04/18 Range/Units 18:53 00:15 06:49 Troponin I < 0.03 < 0.03 < 0.03 (< 0.04) ng/mL - ABG Interpretation ABG results: PT/INR, D-dimer PT 12.1 Seconds (9.4-12.1) 11/03/18 18:53 - Impressions Impressions Chest X-Ray 11/03/18 17:56 IMPRESSION: No acute process. Stable COPD changes D/ / Tanvir Armenta MD / Tanvir Armenta MD Interpreting Provider: Tanvir Armenta MD Consult Discharge Plan - Plan Referrals: [facility] [Primary Care Provider] - (2) Hypertension Qualifiers: Hypertension type: essential hypertension Qualified Code(s): I10 - Essential (primary) hypertension
[2018-11-04] MEDS: Budesonide/Formoterol 160/4.5 1 PUFF INH IH SCH (20:34)
[2018-11-04] MEDS: Melatonin 3 MG TABLET PO SCH (20:56)
[2018-11-05] MEDS: *HR* HYDROcodone/Acet 5/325 mg TABLET PO PRN ×4 (03:31→22:20)
[2018-11-05] MEDS: Ipratropium/Albuterol Neb 3 ML IH SCH ×6 (03:47→23:27)
[2018-11-05] MEDS: *HR* Heparin 5,000 UNIT/ML VIAL SQ SCH ×3 (06:17→22:20)
[2018-11-05] MEDS: Budesonide/Formoterol 160/4.5 1 PUFF INH IH SCH ×2 (07:43→20:26)
[2018-11-05] MEDS: amLODIPine 5 MG TABLET PO SCH (09:07)
[2018-11-05] MEDS: Metoprolol XL (24 HR) Succ 25 MG TAB.ER.24H PO SCH (09:08)
[2018-11-05] MEDS: predniSONE 20 MG TABLET PO SCH (09:08)
[2018-11-05] MEDS: Aspirin Enteric Coated 81 MG Tablet PO SCH (09:08)
[2018-11-05] MEDS: levoFLOXacin 750 MG TABLET PO SCH (09:08)
[2018-11-05 09:12] LABS: Hematocrit 34.5 % (37.5-50.1); Hemoglobin 10.7 g/dL (12.9-16.9); Mean Corpuscular Volume 70.8 fL (83.0-100.0); Mean Platelet Volume 10.3 fL (9.4-12.4); Nucleated Red Blood Cells 0.3 /100 WBC (0); Platelet Count 251 K/mcL (140-400); Red Blood Count 4.87 M/mcL (4.19-5.50); Red Cell Distribution Width 16.3 % (11.5-14.5)
[2018-11-05 09:29] LABS: BUN/Creatinine Ratio 43 (6-26); Blood Urea Nitrogen 35 mg/dL (8-23); Calcium 8.7 mg/dL (8.6-10.3); Carbon Dioxide 34 mEq/L (23-29); Chloride 97 mEq/L (98-107); Glucose 104 mg/dL (70-105); Magnesium 2.2 mg/dL (1.6-2.6); Osmolality,Calculated 290 (280-300); Phosphorous 4.2 mg/dL (2.7-4.5); Potassium 3.8 mEq/L (3.5-5.1); Sodium 136 mEq/L (136-145); eGFR For Non-African Americans > 60 (> 60)
[2018-11-05 10:08] LABS: Lymphocytes # 5.3 K/mcL (0.6-4.6); Monocytes # 1.2 K/mcL (0.0-1.3); Neutrophils # 8.2 K/mcL (1.6-8.9); Platelet Estimate Normal (Normal)
--- NOTE | 2018-11-05 10:13 | Internal Med Progress Note ---
Hospitalist Progress Note - Encounter Date of Encounter: 11/05/18 Time of Encounter: 10:12 - Subjective Interval History: I have seen and evaluated the patient at bedside. patient reports feeling better but reports feeling weak and slightly short of breath when he walks. denies chest pain, nausea or vomiting. denies loose stool or diarrhea. - Exam Vitals: Temp Pulse Resp BP Pulse Ox 97.7 F 62 15 127/64 98 11/05/18 06:47 11/05/18 06:47 11/05/18 06:47 11/05/18 06:47 11/05/18 06:47 Exam: Vitals: Reviewed General: Alert and oriented x4. in no distress Cardiovascular: RRR, normal S1 & S2, no rubs, murmurs or gallops. Lungs: decreased breath sounds b/l, no wheezes b/l, no crackles. some rales of the left lower quadrant. Abdomen: Soft, non-tender, no rigidity. NABS in all 4 quadrants Extremities: No edema Neurological: No focal neurological abnormalities Rest of the physical exam is non contributory - Assessment and Plan (1) COPD exacerbation Current Visit: No Status: Acute Assessment and Plan: No wheezing Plan On prednisone 40mg/PO daiy Bronchodilators Q4RT Scheduled. on symbicort. continue levofloxacin 750mg/PO daily. O2 by nasal cannula, titrate for O2Sat >92% (2) Hypertension Current Visit: No Status: Chronic Assessment and Plan: BP is well controlled. continue current management. patient on metoprolol 25mg/PO daily and amlodipine 5mg/PO daily. (3) Paroxysmal atrial fibrillation Current Visit: No Status: Chronic Assessment and Plan: Rate controlled on on a bb. CHADSVASC 3. will defer anticoagulation to cardiology team on aspirin 81mg/PO daily (4) Nonsustained ventricular tachycardia Current Visit: Yes Status: Acute Assessment and Plan: no cardiac arrhythmias reported. patient denies dizziness or light headedness. continue metoprolol 25mg/PO daily. cardiology recommendations appreciated DVT Prophylaxis: patient is on heparin subQ - Summary of Assessment and Plan Summary of Assessment and Plan: patient to remain in the hospital due to copd exacerbation. potential discharge tomorrow. - Time Spent with Patient Total time spent is greater than 50% in coordination of care (as documented) at patient's floor/unit and/or counseling patient: Greater than 35 minutes (40) Plan of Care Discussed with: patient (and the nurse.) Internal Medicine: Result - Labs CBC & Chem 7: 11/05/18 07:59 11/05/18 07:59 Labs: Short CBC 11/05/18 Range/Units 07:59 WBC 14.7 H (4.3-11.1) K/mcL Hgb 10.7 L (12.9-16.9) g/dL Hct 34.5 L (37.5-50.1) % Plt Count 251 (140-400) K/mcL Neutrophils # 8.2 (1.6-8.9) K/mcL BMP 11/05/18 07:59 Sodium 136 Potassium 3.8 Chloride 97 L Carbon Dioxide 34 H BUN 35 H Creatinine 0.82 Glucose 104 Calcium 8.7 - ABG Interpretation ABG results: PT/INR, D-dimer PT 12.1 Seconds (9.4-12.1) 11/03/18 18:53 Consult Discharge Plan - Plan Referrals: [facility] [Primary Care Provider] - (2) Hypertension Qualifiers: Hypertension type: essential hypertension Qualified Code(s): I10 - Essential (primary) hypertension
--- NOTE | 2018-11-05 12:38 | Cardiology Progress Note ---
Date of Encounter: 11/05/18 Time of Encounter: 12:36 Assessment and Plan (1) Nonsustained ventricular tachycardia Current Visit: Yes Status: Acute Pt seen to have frequent NSVT yesterday. BB increased. NSVT resolved. Pt declines ischemic evaluation and prefers medical management. States that he has a lot of stress at home. Agitated on exam and states he only wants to sleep. TTE 05/2015- EF 55%, no significant valve disease.We will schedule out-pt f/u. Pt may reconsider Cardiology work-up once stress resolved. Cardiology will sign off. (2) Paroxysmal atrial fibrillation Current Visit: No Status: Chronic H/o PAF. Now NSR. On asa and bb. Unable to discuss POC with pt. Pt states "shut up" when POC discussed. Ideally jail AC with Coumadin or NOAC would be recommended with CHADS VASC 2 for HTN and age. Can consider prior to d/c if patient allows. Discussion w patient/family: The assessment and plan as outlined above was discussed with the patient and/or family members who expressed understanding and agreement. All questions were answered. Thank you for involving us in the care of your patient. Please call with any questions. Subjective Principal diagnosis: NSVT Interval history: Pt agitated. He states he hasn't slept in one month. Reports stress at home. Denies chest pain. Objective Vital Signs, Last 4 Hours Temp Pulse Resp BP Pulse Ox 11/05/18 11:24 97.7 F 72 14 121/65 99 General: Conversant, No Apparent Distress HEENT: Atraumatic, Normocephaly, Mucus Membranes Moist Neck: No JVD, Normal carotid pulses Cardiac: Reg Rate and Rhythm, Normal S1 and S2, No Murmur Lungs: Normal Breath Sounds, No Wheeze, Rales, Rhonchi Neuro: Alert and responsive, No focal deficits noted Abdomen: Soft, Non-Tender Skin: No rashes noted on visualized skin Musculoskeletal: No Chest Wall Tenderness Extremities: No Clubbing, No Cyanosis, No Edema, Normal Pulses Results 11/05/18 07:59 11/05/18 07:59 Lab Results 11/05/18 11/05/18 07:59 07:59 WBC 14.7 H Hgb 10.7 L Hct 34.5 L Plt Count 251 Sodium 136 Potassium 3.8 Chloride 97 L Carbon Dioxide 34 H BUN 35 H Creatinine 0.82 Glucose 104 Calcium 8.7 Magnesium 2.2 - Imaging and Cardiology Echo: report reviewed - EKG Interpretation EKG results cardiology: personally reviewed Consult Discharge Plan - Plan [facility] [Primary Care Provider[facility] -
[2018-11-05] MEDS: Nicotine 7 MG PATCH.TD24 TD SCH (22:20)
[2018-11-05] MEDS: Melatonin 3 MG TABLET PO SCH (22:20)
[2018-11-06] MEDS: Ipratropium/Albuterol Neb 3 ML IH SCH ×4 (03:56→16:21)
[2018-11-06] MEDS: *HR* Heparin 5,000 UNIT/ML VIAL SQ SCH (05:56)
[2018-11-06] MEDS: Budesonide/Formoterol 160/4.5 1 PUFF INH IH SCH (07:22)
[2018-11-06] MEDS: levoFLOXacin 750 MG TABLET PO SCH (07:50)
[2018-11-06] MEDS: Nicotine 7 MG PATCH.TD24 TD SCH (07:50)
[2018-11-06 07:51] VITALS: BP 132/71
[2018-11-06] MEDS: predniSONE 20 MG TABLET PO SCH (07:51)
[2018-11-06] MEDS: Aspirin Enteric Coated 81 MG Tablet PO SCH (07:51)
[2018-11-06] MEDS: Metoprolol XL (24 HR) Succ 25 MG TAB.ER.24H PO SCH (07:51)
[2018-11-06] MEDS: amLODIPine 5 MG TABLET PO SCH (07:51)
[2018-11-06] MEDS: *HR* HYDROcodone/Acet 5/325 mg TABLET PO PRN ×2 (07:59→16:07)
--- NOTE | 2018-11-06 08:55 | Discharge Summary ---
Orders not resulted at time of discharge: Pending orders 11/04/18 07:30 EKG [ECG 12 lead ECG] [ECG] Stat 11/06/18 08:50 XR KUB [XR] Routine Date of Encounter: 11/06/18 Time of Encounter: 08:51 - Discharge Diagnosis (1) COPD exacerbation Priority: Primary Status: Resolved (2) Hypertension Priority: Secondary Status: Chronic Qualifiers: Hypertension type: essential hypertension Qualified Code(s): I10 - Essential (primary) hypertension (3) Paroxysmal atrial fibrillation Priority: Secondary Status: Chronic (4) Nonsustained ventricular tachycardia Priority: Primary Status: Resolved Hospital course: Mr. Rivera is a 73 year old male PMH of tobacco abuse, chronic hypoxemic respiratory failure on 3 litter of O2 by nasal cannula, COPD, depression, HLD, A.fib? and chronic back pain. Patient transferred to [facility] from the [facility] due to A.fib with 4 runs of Vtach. patient admitted to [facility] due to non-sustained Vtach and copd exacerbation. patient was managed with systemic steroids and bronchodilators. Cardiology consulted, patient started on a bb. Ischemic work up and anticoagulation offered but patient refused and preferred to follow up as outpatient. Patient acute symptoms on presentation have resolved and he is hemodynamically stable to be discharged. - Time Spent with Patient Total time spent providing and/or coordinating discharge services: Time spent: Greater than 30 minutes (35) - Discharge Medications Prescriptions: New levoFLOXacin [Levaquin] 750 mg PO DAILY 5 Days #5 tablet Melatonin 3 mg PO HS 30 Days #30 tablet Metoprolol XL (24 HR) Succ [Toprol Xl] 25 mg PO DAILY 30 Days #30 tab.er.24h Continued Promethazine [Phenergan] 25 mg PO QID PRN PRN Reason: NAUSEA/VOMITING Omeprazole [PriLOSEC] 20 mg PO BID PRN PRN Reason: GERD Olodaterol HCl [Striverdi Respimat] 2 puff IH DAILY Bolt-3/Dha/Epa/Fish Oil [Fish Oil 1,000 mg Softgel] 1 cap PO 1-2XD Diclofenac Sodium [Voltaren] 50 mg PO TID PRN PRN Reason: Pain clonazePAM [Klonopin] 2 mg PO DAILY PRN PRN Reason: Anxiety Cholecalciferol (D-3) [Vitamin D] 1,000 unit PO 1-2XD Aspirin 325 mg PO DAILY amLODIPine [Norvasc] 2.5 - 5 mg PO DAILY Budesonide/Formoterol 160/4.5 [Symbicort 160/4.5] 2 puff IH BID PRN PRN Reason: Shortness Of Breath Capsaicin [Zostrix Hp Foot] 1 appl TP BID PRN PRN Reason: Pain Gabapentin [Neurontin] 300 mg PO DAILY Ipratropium/Albuterol Sulfate [Iprat-Albut 0.5-3(2.5) mg/3 ml] 3 ml IH Q4H PRN PRN Reason: Shortness Of Breath Non-Formulary Medication 3 cap PO DAILY Non-Formulary Medication 1 cap PO DAILY PRN PRN Reason: "IRRITATED/RAW LUNG" Non-Formulary Medication 1 tab PO DAILY Potassium 99 mg PO Q48H predniSONE [PredniSONE] 2.5 mg PO DAILY PRN PRN Reason: Congestion Trazodone HCl 25 mg PO HS PRN PRN Reason: Sleep Vitamin B Complex [Balanced B-50] 1 tab PO DAILY PRN PRN Reason: "SORE COLON" Vitamin E 400 unit PO DAILY PRN PRN Reason: LEG PAIN HYDROcodone/Acet 5/325 mg [[place] 5-325 mg] 1 tab PO DAILY PRN 7 Days #10 tablet PRN Reason: Pain Home Medications: Aspirin 325 mg PO DAILY 04/11/17 [History] Cholecalciferol (D-3) [Vitamin D] 1,000 unit PO 1-2XD 04/11/17 [History] Diclofenac Sodium [Voltaren] 50 mg PO TID PRN 04/11/17 [History] Olodaterol HCl [Striverdi Respimat] 2 puff IH DAILY 04/11/17 [History] Bolt-3/Dha/Epa/Fish Oil [Fish Oil 1,000 mg Softgel] 1 cap PO 1-2XD 04/11/17 [History] Omeprazole [PriLOSEC] 20 mg PO BID PRN 04/11/17 [History] Promethazine [Phenergan] 25 mg PO QID PRN 04/11/17 [History] amLODIPine [Norvasc] 2.5 - 5 mg PO DAILY 04/11/17 [History] clonazePAM [Klonopin] 2 mg PO DAILY PRN 04/11/17 [History] Budesonide/Formoterol 160/4.5 [Symbicort 160/4.5] 2 puff IH BID PRN 11/05/18 [History] Capsaicin [Zostrix Hp Foot] 1 appl TP BID PRN 11/05/18 [History] Gabapentin [Neurontin] 300 mg PO DAILY 11/05/18 [History] Ipratropium/Albuterol Sulfate [Iprat-Albut 0.5-3(2.5) mg/3 ml] 3 ml IH Q4H PRN 11/05/18 [History] Non-Formulary Medication 1 cap PO DAILY PRN 11/05/18 [History] Non-Formulary Medication 1 tab PO DAILY 11/05/18 [History] Non-Formulary Medication 3 cap PO DAILY 11/05/18 [History] Potassium 99 mg PO Q48H 11/05/18 [History] Trazodone HCl 25 mg PO HS PRN 11/05/18 [History] Vitamin B Complex [Balanced B-50] 1 tab PO DAILY PRN 11/05/18 [History] Vitamin E 400 unit PO DAILY PRN 11/05/18 [History] predniSONE [PredniSONE] 2.5 mg PO DAILY PRN 11/05/18 [History] HYDROcodone/Acet 5/325 mg [[place] 5-325 mg] 1 tab PO DAILY PRN 7 Days #10 tablet 11/06/18 [Rx] Melatonin 3 mg PO HS 30 Days #30 tablet 11/06/18 [Rx] Metoprolol XL (24 HR) Succ [Toprol Xl] 25 mg PO DAILY 30 Days #30 tab.er.24h 11/06/18 [Rx] levoFLOXacin [Levaquin] 750 mg PO DAILY 5 Days #5 tablet 11/06/18 [Rx] Allergies/Adverse Reactions: Allergy/AdvReac Type Severity Reaction Status Date / Time codeine AdvReac Heartburn Verified 06/02/15 19:05 Date of admission: 11/03/18 17:41 [facility] Consults: 11/03/18 17:59 Consult to Cardiology [CONS] Routine Comment: Consulting Provider: Cardiology [place] Reason for Consult: cardiac arrythmia. patient had 4 runs of VTach Call Completed: Yes 11/04/18 12:37 Consult to Occupational Therapy [CONS] Routine Comment: Evaluate, develop and implement POC Reason for Consult: generalized weakness Does patient have active BEDREST order?: No Is patient medically & hemodynamically stable?: Yes Consult to Physical Therapy [CONS] Routine Comment: Evaluate, develop and implement POC Reason for Consult: generalized weakness Does patient have active BEDREST order?: No Is patient medically & hemodynamically stable?: Yes 11/06/18 08:30 Consult to [facility] [CONS] Routine Reason for SW Consult: pt to go to rehab - Constitutional Vitals: Temp Pulse Resp BP Pulse Ox 97.7 F 71 14 132/71 99 11/06/18 07:51 11/06/18 07:51 11/06/18 08:24 11/06/18 07:51 11/06/18 08:24 Exam: Vitals: Reviewed General: Alert and oriented x4. in no distress Cardiovascular: RRR, normal S1 & S2, no rubs, murmurs or gallops. Lungs: decreased breath sounds b/l, no wheezes b/l, no crackles. Abdomen: Soft, non-tender, no rigidity. NABS in all 4 quadrants Extremities: No edema Neurological: No focal neurological abnormalities Rest of the physical exam is non contributory - Patient Status Disposition: Transfer SNF Condition: Fair Functional capacity at discharge: independent ambulation Overall status at discharge: patient is progressing back to baseline - Discharge Instructions [facility] With: [facility] [Primary Care Provider[facility] - - Diet and Activity Activity: resume usual activities as tolerated, wear oxygen at all times Diet: low salt diet
[2018-11-06] MEDS ORDERED: Lactulose Oral Soln 20 GM/30 ML UDC PO SCH (09:00)
[2018-11-06] MEDS ORDERED: Gabapentin 300 MG CAPSULE PO STA (12:10)
--- NOTE | 2018-11-06 12:52 | Physician Discharge Referral ---
ExtendedCare Referral Info Transfer To: [facility] - Diagnosis (1) COPD exacerbation Priority: Primary Status: Resolved (2) Hypertension Priority: Secondary Status: Chronic (3) Paroxysmal atrial fibrillation Priority: Secondary Status: Chronic (4) Nonsustained ventricular tachycardia Priority: Primary Status: Resolved Prognosis: Fair Aware of Diagnosis: Patient Aware of Prognosis: Patient - Transfer Medications Prescriptions: levoFLOXacin [Levaquin] 750 mg PO DAILY 5 Days #5 tablet Melatonin 3 mg PO HS 30 Days #30 tablet HYDROcodone/Acet 5/325 mg [[place] 5-325 mg] 1 tab PO DAILY PRN 7 Days #10 tablet PRN Reason: Pain Metoprolol XL (24 HR) Succ [Toprol Xl] 25 mg PO DAILY 30 Days #30 tab.er.24h Home Medications: Aspirin 325 mg PO DAILY 04/11/17 [History] Cholecalciferol (D-3) [Vitamin D] 1,000 unit PO 1-2XD 04/11/17 [History] Diclofenac Sodium [Voltaren] 50 mg PO TID PRN 04/11/17 [History] [place]-3/Dha/Epa/Fish Oil [Fish Oil 1,000 mg Softgel] 1 cap PO 1-2XD 04/11/17 [History] Omeprazole [PriLOSEC] 20 mg PO BID PRN 04/11/17 [History] Promethazine [Phenergan] 25 mg PO QID PRN 04/11/17 [History] amLODIPine [Norvasc] 2.5 - 5 mg PO DAILY 04/11/17 [History] clonazePAM [Klonopin] 2 mg PO DAILY PRN 04/11/17 [History] Budesonide/Formoterol 160/4.5 [Symbicort 160/4.5] 2 puff IH BID PRN 11/05/18 [History] Capsaicin [Zostrix Hp Foot] 1 appl TP BID PRN 11/05/18 [History] Gabapentin [Neurontin] 300 mg PO DAILY 11/05/18 [History] Ipratropium/Albuterol Sulfate [Iprat-Albut 0.5-3(2.5) mg/3 ml] 3 ml IH Q4H PRN 11/05/18 [History] Non-Formulary Medication 1 cap PO DAILY PRN 11/05/18 [History] Non-Formulary Medication 1 tab PO DAILY 11/05/18 [History] Non-Formulary Medication 3 cap PO DAILY 11/05/18 [History] Potassium 99 mg PO Q48H 11/05/18 [History] Trazodone HCl 25 mg PO HS PRN 11/05/18 [History] Vitamin B Complex [Balanced B-50] 1 tab PO DAILY PRN 11/05/18 [History] Vitamin E 400 unit PO DAILY PRN 11/05/18 [History] predniSONE [PredniSONE] 2.5 mg PO DAILY PRN 11/05/18 [History] Celecoxib [Celebrex] 200 mg PO DAILY PRN 11/06/18 [History] DULoxetine [Cymbalta] 30 mg PO BID 11/06/18 [History] HYDROcodone/Acet 5/325 mg [[place] 5-325 mg] 1 tab PO DAILY PRN 7 Days #10 tablet 11/06/18 [Rx] Melatonin 3 mg PO HS 30 Days #30 tablet 11/06/18 [Rx] Metoprolol XL (24 HR) Succ [Toprol Xl] 25 mg PO DAILY 30 Days #30 tab.er.24h 11/06/18 [Rx] levoFLOXacin [Levaquin] 750 mg PO DAILY 5 Days #5 tablet 11/06/18 [Rx] Allergies/Adverse Reactions: Allergy/AdvReac Type Severity Reaction Status Date / Time codeine AdvReac Heartburn Verified 06/02/15 19:05 - Respiratory Orders Oxygen / L per min Smoking Cessation: Smoking cessation has been advised. For more information, call the [place] Tobacco Quit Line at 7-144-ZDXQ-NOW. - Advance Directives Code Status: Full Code - Mobility Orders Ambulate - Rehabiliation Orders Rehab Potential: Fair Rehab Orders: Evaluation for Physical Therapy, Evaluation for Occupational Therapy - Diet Orders Regular CERTIFICATION: I certify that the transfer of the above named patient to an Extended Care Facility is necessary for the continuing treatment of the diagnosis listed. The above information is true and accurate reflection of patient's current condition. Confidential - Redisclosure prohibited without a patient's written consent.
== END 2018-11-06 16:53 | DRG 191 ==
LOC: 2NENU 17:41
PROVIDERS: ADMIT Internal Medicine Nephrology; ATTEND Internal Medicine Nephrology

== ENCOUNTER 2018-12-04 19:06 | Inpatient (IN) ==
[2018-12-04] MEDS ORDERED: Ipratropium/Albuterol Neb 3 ML ONE (19:18)
[2018-12-04] MEDS ORDERED: methylPREDNISolone 125 MG/2 ML VIAL IVP ONE (19:31)
[2018-12-04] MEDS ORDERED: Ipratropium/Albuterol Neb 3 ML IH ONE (19:31)
[2018-12-04 20:11] LABS: Basophils % 0.3 %; Eosinophils # 0.1 K/mcL (0.0-0.6); Eosinophils % 0.9 %; Hematocrit 33.1 % (37.5-50.1); Hemoglobin 10.2 g/dL (12.9-16.9); Immature Granulocytes % 1.5 % (0-4); Lymphocytes % 6.6 %; Mean Corpuscular HGB Conc 30.8 g/dL (31.6-35.5); Mean Corpuscular Hemoglobin 22.4 pg (28.0-33.3); Mean Corpuscular Volume 72.7 fL (83.0-100.0); Mean Platelet Volume 9.1 fL (9.4-12.4); Monocytes # 0.7 K/mcL (0.0-1.3); Monocytes % 4.6 %; Neutrophils # 12.5 K/mcL (1.6-8.9); Nucleated Red Blood Cells 0.1 /100 WBC (0); Platelet Count 260 K/mcL (140-400); Red Blood Count 4.55 M/mcL (4.19-5.50); Red Cell Distribution Width 17.3 % (11.5-14.5); Segmented Neutrophils % 86.1 %; White Blood Count 14.5 K/mcL (4.3-11.1)
[2018-12-04 20:18] LABS: VBG HCO3 27 mEq/L (21-27); VBG PCO2 41 mmHg (41-51); VBG PH 7.42 pH Units (7.32-7.42); VBG PO2 128 mmHg (25-50)
[2018-12-04 20:32] LABS: BUN/Creatinine Ratio 29 (6-26); Blood Urea Nitrogen 22 mg/dL (8-23); Calcium 8.4 mg/dL (8.6-10.3); Carbon Dioxide 27 mEq/L (23-29); Chloride 106 mEq/L (98-107); Ethanol < 10 mg/dL (Less than 10); Glucose 128 mg/dL (70-105); Osmolality,Calculated 289 (280-300); Potassium 4.5 mEq/L (3.5-5.1); Sodium 137 mEq/L (136-145); eGFR For African Americans > 60 (> 60); eGFR For Non-African Americans > 60 (> 60)
[2018-12-04 20:33] LABS: Troponin I < 0.03 ng/mL (< 0.04)
[2018-12-04] MEDS: DilTIAZem 50 MG in 0.9 % Sodium Chloride 40 ML IVC SCH (21:52)
[2018-12-04] MEDS ORDERED: Naloxone 0.4 MG/ML INJ IVP PRN (22:52)
[2018-12-04] MEDS ORDERED: Ondansetron 4 MG/2 ML VIAL IVP PRN (22:52)
[2018-12-04] MEDS ORDERED: Levalbuterol 1 PUFF INHALER IH PRN (22:55)
[2018-12-04] MEDS ORDERED: Celecoxib 200 MG CAPSULE PO PRN (22:57)
[2018-12-04] MEDS ORDERED: Capsaicin 0.025% 60 GM TUBE TP PRN (22:57)
[2018-12-04] MEDS ORDERED: 0.9 % Sodium Chloride 1,000 ML IVC SCH (23:00)
[2018-12-05] MEDS: Ipratropium/Albuterol Neb 3 ML IH SCH ×3 (00:12→07:25)
[2018-12-05] MEDS ORDERED: *HR* Heparin 5,000 UNIT/ML VIAL IVP PRN ×2 (00:21)
[2018-12-05] MEDS ORDERED: *HR* Heparin 5,000 UNIT/ML VIAL IVP ONE (00:21)
[2018-12-05 00:59] LABS: Hematocrit 33.2 % (37.5-50.1); Hemoglobin 10.2 g/dL (12.9-16.9); Mean Corpuscular HGB Conc 30.7 g/dL (31.6-35.5); Mean Corpuscular Hemoglobin 22.2 pg (28.0-33.3); Mean Corpuscular Volume 72.2 fL (83.0-100.0); Mean Platelet Volume 9.6 fL (9.4-12.4); Platelet Count 249 K/mcL (140-400); Red Cell Distribution Width 17.2 % (11.5-14.5); White Blood Count 12.5 K/mcL (4.3-11.1)
[2018-12-05] MEDS: Azithromycin 500 MG in D5% in Water 250 ML IVPB SCH ×2 (00:59→19:44)
[2018-12-05] MEDS: traZODone 50 MG TABLET PO PRN ×2 (01:00→19:44)
[2018-12-05 01:09] LABS: Heparin anti-factor XA UFH 0.03 IU/mL (0.30-0.70)
[2018-12-05 01:10] LABS: Prothrombin Time 11.2 Seconds (9.4-12.1)
[2018-12-05 02:26] LABS: Basophils % 0.1 %; Hematocrit 31.7 % (37.5-50.1); Hemoglobin 9.7 g/dL (12.9-16.9); Immature Granulocytes % 1.4 % (0-4); Lymphocytes # 0.4 K/mcL (0.6-4.6); Lymphocytes % 4.1 %; Mean Corpuscular HGB Conc 30.6 g/dL (31.6-35.5); Mean Corpuscular Hemoglobin 22.1 pg (28.0-33.3); Mean Corpuscular Volume 72.4 fL (83.0-100.0); Mean Platelet Volume 9.8 fL (9.4-12.4); Monocytes # 0.1 K/mcL (0.0-1.3); Monocytes % 0.7 %; Nucleated Red Blood Cells 0.2 /100 WBC (0); Platelet Count 250 K/mcL (140-400); Red Blood Count 4.38 M/mcL (4.19-5.50); Red Cell Distribution Width 17.2 % (11.5-14.5); Segmented Neutrophils % 93.7 %; White Blood Count 10.6 K/mcL (4.3-11.1)
[2018-12-05 02:45] LABS: BUN/Creatinine Ratio 33 (6-26); Blood Urea Nitrogen 24 mg/dL (8-23); Calcium 8.4 mg/dL (8.6-10.3); Carbon Dioxide 26 mEq/L (23-29); Chloride 103 mEq/L (98-107); Chol/HDL Ratio 2.4 (0-4.9); Cholesterol 159 mg/dL (< 200); Glucose 210 mg/dL (70-105); HDL Cholesterol 67 mg/dL (40-59); LDL Cholesterol,Calculated 84 mg/dL (0-99); Osmolality,Calculated 290 (280-300); Potassium 4.5 mEq/L (3.5-5.1); Sodium 135 mEq/L (136-145); Triglycerides 42 mg/dL (< 150); eGFR For African Americans > 60 (> 60); eGFR For Non-African Americans > 60 (> 60)
[2018-12-05] MEDS: DilTIAZem 50 MG in 0.9 % Sodium Chloride 40 ML IVC SCH (02:48)
[2018-12-05] MEDS: Heparin 25,000 UNIT/250 ML D5W 25,000 UNIT/250 ML IV.SOLN IVC SCH (02:50)
[2018-12-05] MEDS: *HR* HYDROcodone/Acet 5/325 mg TABLET PO PRN ×4 (02:59→23:46)
[2018-12-05] MEDS ORDERED: *HR* Heparin 5,000 UNIT/ML VIAL SQ SCH (06:00)
[2018-12-05] MEDS: Budesonide/Formoterol 160/4.5 1 PUFF INH IH SCH ×2 (07:25→22:20)
[2018-12-05] MEDS ORDERED: Ipratropium Neb 0.5 MG NEBULIZER IH PRN (07:54)
[2018-12-05] MEDS: predniSONE 20 MG TABLET PO SCH (08:46)
[2018-12-05] MEDS: Aspirin 325 MG TABLET PO SCH (08:46)
[2018-12-05] MEDS: cefTRIAXone 1,000 MG in Water for inj. (sterile) 10 ML IVP SCH (08:46)
[2018-12-05] MEDS: Nicotine 21 MG PATCH.TD24 TD SCH (08:47)
[2018-12-05] MEDS ORDERED: Gabapentin 300 MG CAPSULE PO SCH (09:00)
[2018-12-05] MEDS ORDERED: amLODIPine 5 MG TABLET PO SCH (09:00)
[2018-12-05 09:25] LABS: Triiodothyronine (T3) Free 2.41 pg/mL (2.50-3.90)
[2018-12-05 10:23] LABS: Bilirubin,Urine Negative (Negative); Blood,Urine Negative (Negative); Clarity,Urine Clear (Clear); Color,Urine Yellow (Yellow); Glucose,Urine (UA) Normal (Normal); Ketones,Urine Trace mg/dL (Negative); Leukocyte Esterase,Urine Negative (Negative); Nitrite,Urine Negative (Negative); Protein,Urine 30 mg/dL (Neg-Trace); Specific Gravity,Urine > 1.030 (1.010-1.025); Urobilinogen,Urine Normal (Normal)
[2018-12-05 10:26] LABS: Bacteria,Urine None Seen per hpf (None-Few); Hyaline Casts,Urine None Seen per lpf (None-Few); Squamous Epithelial Cell,Urine Moderate per lpf (None-Few); WBC,Urine 0-3 per hpf (0-3)
[2018-12-05 10:30] LABS: Amphetamine Screen,Urine Negative ng/mL (Cutoff=1000); Barbiturate Screen,Urine Negative ng/mL (Cutoff=200); Benzodiazepines Screen,Urine Negative ng/mL (Cutoff=200); Cannabinoid Screen,Urine Negative ng/mL (Cutoff = 50); Cocaine Screen,Urine Negative ng/mL (Cutoff= 300); Opiate Screen,Urine Positive ng/mL (Cutoff=300); Phencyclidine Screen,Urine Negative ng/mL (Cutoff=25)
[2018-12-05] MEDS: Albuterol 2.5 MG/3 ML NEBULIZER IH SCH ×3 (10:45→22:20)
[2018-12-05] MEDS ORDERED: *HR* HYDROcodone/Acet 5/325 mg TABLET PO ONE (12:58)
[2018-12-05] MEDS ORDERED: Perflutren Lipid Microsphere 1.3 ML in 0.9 % Sodium Chloride 8.7 ML IVP ONE (15:14)
[2018-12-05] MEDS ORDERED: Perflutren Lipid Microsphere 2 ML VIAL ONE (15:18)
[2018-12-05] MEDS: Melatonin 3 MG TABLET PO PRN (21:21)
[2018-12-06] MEDS: Albuterol 2.5 MG/3 ML NEBULIZER IH SCH ×4 (04:07→22:41)
[2018-12-06] MEDS: Heparin 25,000 UNIT/250 ML D5W 25,000 UNIT/250 ML IV.SOLN IVC SCH (05:09)
[2018-12-06 07:01] LABS: Basophils % 0.1 %; Hematocrit 30.1 % (37.5-50.1); Hemoglobin 9.4 g/dL (12.9-16.9); Immature Granulocytes % 1.2 % (0-4); Lymphocytes # 1.1 K/mcL (0.6-4.6); Mean Corpuscular HGB Conc 31.2 g/dL (31.6-35.5); Mean Corpuscular Hemoglobin 22.3 pg (28.0-33.3); Mean Corpuscular Volume 71.5 fL (83.0-100.0); Monocytes # 1.1 K/mcL (0.0-1.3); Monocytes % 6.9 %; Neutrophils # 13.6 K/mcL (1.6-8.9); Platelet Count 252 K/mcL (140-400); Red Blood Count 4.21 M/mcL (4.19-5.50); Red Cell Distribution Width 17.2 % (11.5-14.5); Segmented Neutrophils % 84.8 %
[2018-12-06 07:24] LABS: BUN/Creatinine Ratio 39 (6-26); Blood Urea Nitrogen 31 mg/dL (8-23); Calcium 8.8 mg/dL (8.6-10.3); Carbon Dioxide 27 mEq/L (23-29); Chloride 101 mEq/L (98-107); Glucose 147 mg/dL (70-105); Magnesium 2.2 mg/dL (1.6-2.6); Osmolality,Calculated 289 (280-300); Potassium 4.6 mEq/L (3.5-5.1); Sodium 135 mEq/L (136-145); eGFR For African Americans > 60 (> 60); eGFR For Non-African Americans > 60 (> 60)
[2018-12-06] MEDS: predniSONE 20 MG TABLET PO SCH (08:16)
[2018-12-06] MEDS: *HR* HYDROcodone/Acet 5/325 mg TABLET PO PRN ×2 (08:16→19:13)
[2018-12-06] MEDS: cefTRIAXone 1,000 MG in Water for inj. (sterile) 10 ML IVP SCH (08:17)
[2018-12-06] MEDS: Aspirin 325 MG TABLET PO SCH (08:17)
[2018-12-06] MEDS: clonazePAM 1 MG TABLET PO PRN ×2 (08:17→19:13)
[2018-12-06] MEDS: Nicotine 21 MG PATCH.TD24 TD SCH (08:18)
[2018-12-06] MEDS: Budesonide/Formoterol 160/4.5 1 PUFF INH IH SCH ×2 (10:39→22:41)
[2018-12-06] MEDS: DilTIAZem CD (24hr) 120 MG CAP.ER.24H PO SCH (12:54)
[2018-12-06] MEDS: Azithromycin 500 MG in D5% in Water 250 ML IVPB SCH (19:43)
[2018-12-06] MEDS: Gabapentin 300 MG CAPSULE PO SCH (19:45)
[2018-12-07 00:23] LABS: Basophils % 0.1 %; Eosinophils % 0.1 %; Hematocrit 31.7 % (37.5-50.1); Hemoglobin 9.8 g/dL (12.9-16.9); Immature Granulocytes % 1.1 % (0-4); Lymphocytes # 1.2 K/mcL (0.6-4.6); Lymphocytes % 7.5 %; Mean Corpuscular HGB Conc 30.9 g/dL (31.6-35.5); Mean Corpuscular Hemoglobin 22.7 pg (28.0-33.3); Mean Corpuscular Volume 73.4 fL (83.0-100.0); Mean Platelet Volume 9.4 fL (9.4-12.4); Monocytes # 1.3 K/mcL (0.0-1.3); Monocytes % 7.8 %; Neutrophils # 13.4 K/mcL (1.6-8.9); Nucleated Red Blood Cells 0.2 /100 WBC (0); Platelet Count 263 K/mcL (140-400); Red Blood Count 4.32 M/mcL (4.19-5.50); Red Cell Distribution Width 17.2 % (11.5-14.5); Segmented Neutrophils % 83.4 %
[2018-12-07 00:42] LABS: BUN/Creatinine Ratio 39 (6-26); Blood Urea Nitrogen 31 mg/dL (8-23); Calcium 8.8 mg/dL (8.6-10.3); Carbon Dioxide 28 mEq/L (23-29); Chloride 103 mEq/L (98-107); Glucose 136 mg/dL (70-105); Magnesium 2.3 mg/dL (1.6-2.6); Osmolality,Calculated 291 (280-300); Phosphorous 3.3 mg/dL (2.7-4.5); Potassium 4.4 mEq/L (3.5-5.1); Sodium 136 mEq/L (136-145); eGFR For African Americans > 60 (> 60); eGFR For Non-African Americans > 60 (> 60)
[2018-12-07] MEDS: Albuterol 2.5 MG/3 ML NEBULIZER IH SCH ×4 (03:07→22:48)
[2018-12-07] MEDS: cefTRIAXone 1,000 MG in Water for inj. (sterile) 10 ML IVP SCH (08:44)
[2018-12-07] MEDS: DilTIAZem CD (24hr) 120 MG CAP.ER.24H PO SCH (08:45)
[2018-12-07] MEDS: *HR* HYDROcodone/Acet 5/325 mg TABLET PO PRN ×3 (08:45→23:50)
[2018-12-07] MEDS: Aspirin 325 MG TABLET PO SCH (08:45)
[2018-12-07] MEDS: predniSONE 20 MG TABLET PO SCH (08:47)
[2018-12-07] MEDS: Nicotine 21 MG PATCH.TD24 TD SCH (08:47)
[2018-12-07] MEDS: Heparin 25,000 UNIT/250 ML D5W 25,000 UNIT/250 ML IV.SOLN IVC SCH (08:54)
[2018-12-07] MEDS: Budesonide/Formoterol 160/4.5 1 PUFF INH IH SCH ×2 (09:22→22:48)
[2018-12-07] MEDS: clonazePAM 1 MG TABLET PO PRN (16:34)
[2018-12-07] MEDS: Azithromycin 500 MG in D5% in Water 250 ML IVPB SCH (20:54)
[2018-12-07] MEDS: traZODone 50 MG TABLET PO PRN (20:55)
[2018-12-07] MEDS: Melatonin 3 MG TABLET PO PRN (20:55)
[2018-12-07] MEDS: Gabapentin 300 MG CAPSULE PO SCH (20:56)
[2018-12-08] MEDS ORDERED: clonazePAM 1 MG TABLET PO ONE (00:29)
[2018-12-08 02:34] LABS: Basophils % 0.1 %; Hematocrit 31.3 % (37.5-50.1); Hemoglobin 9.5 g/dL (12.9-16.9); Immature Granulocytes % 1.9 % (0-4); Lymphocytes # 1.2 K/mcL (0.6-4.6); Lymphocytes % 8.4 %; Mean Corpuscular HGB Conc 30.4 g/dL (31.6-35.5); Mean Corpuscular Hemoglobin 22.6 pg (28.0-33.3); Mean Corpuscular Volume 74.5 fL (83.0-100.0); Mean Platelet Volume 10.1 fL (9.4-12.4); Monocytes # 0.9 K/mcL (0.0-1.3); Monocytes % 6.4 %; Neutrophils # 11.6 K/mcL (1.6-8.9); Nucleated Red Blood Cells 0.2 /100 WBC (0); Platelet Count 261 K/mcL (140-400); Red Cell Distribution Width 17.3 % (11.5-14.5); Segmented Neutrophils % 83.2 %
[2018-12-08 02:57] LABS: Blood Urea Nitrogen 23 mg/dL (8-23); Calcium 8.8 mg/dL (8.6-10.3); Carbon Dioxide 28 mEq/L (23-29); Chloride 102 mEq/L (98-107); Glucose 137 mg/dL (70-105); Magnesium 2.1 mg/dL (1.6-2.6); Osmolality,Calculated 284 (280-300); Phosphorous 3.2 mg/dL (2.7-4.5); Sodium 134 mEq/L (136-145)
[2018-12-08 03:10] LABS: BUN/Creatinine Ratio 31 (6-26); eGFR For African Americans > 60 (> 60); eGFR For Non-African Americans > 60 (> 60)
[2018-12-08] MEDS: Albuterol 2.5 MG/3 ML NEBULIZER IH SCH ×4 (03:50→22:55)
[2018-12-08] MEDS: DilTIAZem CD (24hr) 120 MG CAP.ER.24H PO SCH (07:51)
[2018-12-08] MEDS: predniSONE 20 MG TABLET PO SCH (07:51)
[2018-12-08] MEDS: Aspirin 325 MG TABLET PO SCH (07:51)
[2018-12-08] MEDS: cefTRIAXone 1,000 MG in Water for inj. (sterile) 10 ML IVP SCH (07:51)
[2018-12-08] MEDS: Nicotine 21 MG PATCH.TD24 TD SCH (07:52)
[2018-12-08] MEDS: Heparin 25,000 UNIT/250 ML D5W 25,000 UNIT/250 ML IV.SOLN IVC SCH (09:43)
[2018-12-08] MEDS: Budesonide/Formoterol 160/4.5 1 PUFF INH IH SCH ×2 (09:47→22:55)
[2018-12-08] MEDS: Regadenoson 0.4 MG/5 ML SYRINGE IVP ONE ×2 (11:16→12:29)
[2018-12-08] MEDS: *HR* Rivaroxaban 10 MG TABLET PO SCH (16:08)
[2018-12-08] MEDS: *HR* HYDROcodone/Acet 5/325 mg TABLET PO PRN (18:43)
[2018-12-08] MEDS: Azithromycin 500 MG in D5% in Water 250 ML IVPB SCH (21:08)
[2018-12-08] MEDS: Gabapentin 300 MG CAPSULE PO SCH (21:08)
[2018-12-09] MEDS: *HR* HYDROcodone/Acet 5/325 mg TABLET PO PRN ×3 (02:55→19:46)
[2018-12-09 03:26] LABS: Basophils % 0.1 %; Eosinophils # 0.1 K/mcL (0.0-0.6); Eosinophils % 0.6 %; Hematocrit 33.8 % (37.5-50.1); Immature Granulocytes % 2.1 % (0-4); Lymphocytes # 2.6 K/mcL (0.6-4.6); Lymphocytes % 15.9 %; Mean Corpuscular HGB Conc 29.6 g/dL (31.6-35.5); Mean Corpuscular Hemoglobin 22.2 pg (28.0-33.3); Mean Corpuscular Volume 74.9 fL (83.0-100.0); Mean Platelet Volume 9.4 fL (9.4-12.4); Monocytes # 1.4 K/mcL (0.0-1.3); Monocytes % 8.8 %; Neutrophils # 11.7 K/mcL (1.6-8.9); Nucleated Red Blood Cells 0.3 /100 WBC (0); Platelet Count 284 K/mcL (140-400); Red Blood Count 4.51 M/mcL (4.19-5.50); Red Cell Distribution Width 17.5 % (11.5-14.5); Segmented Neutrophils % 72.5 %; White Blood Count 16.1 K/mcL (4.3-11.1)
[2018-12-09 03:45] LABS: BUN/Creatinine Ratio 20 (6-26); Blood Urea Nitrogen 23 mg/dL (8-23); Calcium 8.6 mg/dL (8.6-10.3); Carbon Dioxide 37 mEq/L (23-29); Chloride 96 mEq/L (98-107); Glucose 118 mg/dL (70-105); Osmolality,Calculated 287 (280-300); Phosphorous 3.6 mg/dL (2.7-4.5); Potassium 4.5 mEq/L (3.5-5.1); Sodium 136 mEq/L (136-145); eGFR For African Americans > 60 (> 60); eGFR For Non-African Americans > 60 (> 60)
[2018-12-09] MEDS: Albuterol 2.5 MG/3 ML NEBULIZER IH SCH ×4 (03:59→21:49)
[2018-12-09] MEDS: cefTRIAXone 1,000 MG in Water for inj. (sterile) 10 ML IVP SCH (07:30)
[2018-12-09] MEDS: predniSONE 20 MG TABLET PO SCH (07:31)
[2018-12-09] MEDS: Nicotine 21 MG PATCH.TD24 TD SCH (07:31)
[2018-12-09] MEDS: DilTIAZem CD (24hr) 120 MG CAP.ER.24H PO SCH (07:31)
[2018-12-09] MEDS: Budesonide/Formoterol 160/4.5 1 PUFF INH IH SCH ×2 (10:02→21:49)
[2018-12-09 14:42] LABS: ABG Base Excess 6 mEq/L (-2 to 3); ABG HCO3 34 mEq/L (21-27); ABG Oxygen Saturation 92 % (95-98); ABG PCO2 63 mmHg (35-45); ABG PH 7.34 pH Units (7.32-7.45); ABG PO2 70 mmHg (85-104); ABG TCO2 36 mEq/L (20-26)
[2018-12-09] MEDS: *HR* Rivaroxaban 10 MG TABLET PO SCH (16:26)
[2018-12-09] MEDS: Gabapentin 300 MG CAPSULE PO SCH (19:48)
[2018-12-09] MEDS: clonazePAM 1 MG TABLET PO PRN (19:48)
[2018-12-10] MEDS: Albuterol 2.5 MG/3 ML NEBULIZER IH SCH ×4 (04:12→21:42)
[2018-12-10] MEDS: *HR* HYDROcodone/Acet 5/325 mg TABLET PO PRN ×3 (05:53→20:15)
[2018-12-10] MEDS: Cefdinir 300 MG CAPSULE PO SCH ×2 (08:30→20:15)
[2018-12-10] MEDS: predniSONE 20 MG TABLET PO SCH (08:30)
[2018-12-10] MEDS: Azithromycin 250 MG TABLET PO SCH (08:30)
[2018-12-10] MEDS: DilTIAZem CD (24hr) 120 MG CAP.ER.24H PO SCH (08:31)
[2018-12-10] MEDS: Nicotine 21 MG PATCH.TD24 TD SCH (08:31)
[2018-12-10 10:11] LABS: Basophils % 0.1 %; Eosinophils # 0.3 K/mcL (0.0-0.6); Eosinophils % 1.8 %; Hematocrit 35.8 % (37.5-50.1); Hemoglobin 10.8 g/dL (12.9-16.9); Immature Granulocytes % 2.8 % (0-4); Lymphocytes # 3.4 K/mcL (0.6-4.6); Lymphocytes % 23.1 %; Mean Corpuscular HGB Conc 30.2 g/dL (31.6-35.5); Mean Corpuscular Hemoglobin 22.7 pg (28.0-33.3); Mean Corpuscular Volume 75.4 fL (83.0-100.0); Mean Platelet Volume 9.4 fL (9.4-12.4); Monocytes % 6.6 %; Neutrophils # 9.7 K/mcL (1.6-8.9); Nucleated Red Blood Cells 0.2 /100 WBC (0); Platelet Count 317 K/mcL (140-400); Red Blood Count 4.75 M/mcL (4.19-5.50); Red Cell Distribution Width 17.9 % (11.5-14.5); Segmented Neutrophils % 65.6 %; White Blood Count 14.8 K/mcL (4.3-11.1)
[2018-12-10] MEDS: Budesonide/Formoterol 160/4.5 1 PUFF INH IH SCH ×2 (10:23→21:42)
[2018-12-10 10:26] LABS: BUN/Creatinine Ratio 23 (6-26); Blood Urea Nitrogen 20 mg/dL (8-23); Carbon Dioxide 37 mEq/L (23-29); Chloride 96 mEq/L (98-107); Glucose 123 mg/dL (70-105); Magnesium 2.1 mg/dL (1.6-2.6); Osmolality,Calculated 286 (280-300); Sodium 136 mEq/L (136-145); eGFR For African Americans > 60 (> 60); eGFR For Non-African Americans > 60 (> 60)
[2018-12-10] MEDS: *HR* Rivaroxaban 10 MG TABLET PO SCH (16:33)
[2018-12-10] MEDS: clonazePAM 1 MG TABLET PO PRN (20:15)
[2018-12-10] MEDS: Gabapentin 300 MG CAPSULE PO SCH (20:15)
[2018-12-11] MEDS: *HR* HYDROcodone/Acet 5/325 mg TABLET PO PRN (03:36)
[2018-12-11] MEDS: Albuterol 2.5 MG/3 ML NEBULIZER IH SCH ×3 (03:58→15:49)
[2018-12-11 07:53] LABS: Basophils # 0.1 K/mcL (0.0-0.2); Basophils % 0.3 %; Eosinophils # 0.2 K/mcL (0.0-0.6); Eosinophils % 1.4 %; Hemoglobin 11.3 g/dL (12.9-16.9); Immature Granulocytes % 2.6 % (0-4); Lymphocytes # 3.6 K/mcL (0.6-4.6); Lymphocytes % 22.6 %; Mean Corpuscular HGB Conc 29.7 g/dL (31.6-35.5); Mean Corpuscular Hemoglobin 21.8 pg (28.0-33.3); Mean Corpuscular Volume 73.2 fL (83.0-100.0); Mean Platelet Volume 9.8 fL (9.4-12.4); Monocytes # 1.4 K/mcL (0.0-1.3); Neutrophils # 10.3 K/mcL (1.6-8.9); Nucleated Red Blood Cells 0.3 /100 WBC (0); Platelet Count 337 K/mcL (140-400); Red Blood Count 5.19 M/mcL (4.19-5.50); Red Cell Distribution Width 18.1 % (11.5-14.5); Segmented Neutrophils % 64.1 %; White Blood Count 16.1 K/mcL (4.3-11.1)
[2018-12-11] MEDS: Cefdinir 300 MG CAPSULE PO SCH (07:54)
[2018-12-11] MEDS: Azithromycin 250 MG TABLET PO SCH (07:54)
[2018-12-11] MEDS: DilTIAZem CD (24hr) 120 MG CAP.ER.24H PO SCH (07:54)
[2018-12-11] MEDS: predniSONE 20 MG TABLET PO SCH (07:54)
[2018-12-11] MEDS: Nicotine 21 MG PATCH.TD24 TD SCH (07:55)
[2018-12-11] MEDS: clonazePAM 1 MG TABLET PO PRN (07:55)
[2018-12-11 07:56] LABS: BUN/Creatinine Ratio 23 (6-26); Blood Urea Nitrogen 23 mg/dL (8-23); Calcium 8.7 mg/dL (8.6-10.3); Carbon Dioxide 38 mEq/L (23-29); Chloride 96 mEq/L (98-107); Glucose 90 mg/dL (70-105); Magnesium 2.1 mg/dL (1.6-2.6); Osmolality,Calculated 289 (280-300); Phosphorous 3.9 mg/dL (2.7-4.5); Potassium 4.2 mEq/L (3.5-5.1); Sodium 138 mEq/L (136-145); eGFR For African Americans > 60 (> 60); eGFR For Non-African Americans > 60 (> 60)
[2018-12-11] MEDS: Budesonide/Formoterol 160/4.5 1 PUFF INH IH SCH (10:57)
[2018-12-11 15:32] VITALS: BP 117/80
== END 2018-12-11 17:56 | disposition home health service (06) | DRG 190 ==
LOC: EMEROOARM 19:06 → 2NENU 19:06 → SUATTDRO 12-05 00:48
PROVIDERS: ADMIT Family Medicine; ATTEND Internal Medicine

== ENCOUNTER 2019-03-12 16:49 | Inpatient (IN) ==
[2019-03-12 17:42] LABS: Hematocrit 41.4 % (37.5-50.1); Hemoglobin 12.7 g/dL (12.9-16.9); Mean Corpuscular HGB Conc 30.7 g/dL (31.6-35.5); Mean Corpuscular Hemoglobin 22.5 pg (28.0-33.3); Mean Corpuscular Volume 73.3 fL (83.0-100.0); Mean Platelet Volume 9.2 fL (9.4-12.4); Platelet Count 161 K/mcL (140-400); Red Blood Count 5.65 M/mcL (4.19-5.50); Red Cell Distribution Width 19.1 % (11.5-14.5)
[2019-03-12 18:03] LABS: Bilirubin,Urine Negative (Negative); Blood,Urine Negative (Negative); Clarity,Urine Clear (Clear); Color,Urine Yellow (Yellow); Glucose,Urine (UA) Normal (Normal); Ketones,Urine Negative (Negative); Leukocyte Esterase,Urine Negative (Negative); Nitrite,Urine Negative (Negative); Protein,Urine Trace mg/dL (Neg-Trace); Specific Gravity,Urine > 1.030 (1.010-1.025); Urobilinogen,Urine Normal (Normal)
[2019-03-12 18:06] LABS: BUN/Creatinine Ratio 67 (6-26); Blood Urea Nitrogen 42 mg/dL (8-23); Calcium 9.3 mg/dL (8.6-10.3); Carbon Dioxide 34 mEq/L (23-29); Chloride 97 mEq/L (98-107); Glucose 98 mg/dL (70-105); Osmolality,Calculated 288 (280-300); Potassium 4.4 mEq/L (3.5-5.1); Sodium 134 mEq/L (136-145); eGFR For African Americans > 60 (> 60); eGFR For Non-African Americans > 60 (> 60)
[2019-03-12] MEDS ORDERED: Azithromycin 500 MG in 0.9 % Sodium Chloride 250 ML IVPB ONE (18:25)
[2019-03-12] MEDS ORDERED: cefTRIAXone 1,000 MG in Water for inj. (sterile) 10 ML IVP ONE (18:25)
[2019-03-12] MEDS ORDERED: Naloxone 0.4 MG/ML INJ IVP PRN (19:21)
[2019-03-12] MEDS ORDERED: 0.9 % Sodium Chloride 1,000 ML IVC SCH (19:30)
[2019-03-12 19:47] LABS: Troponin I 0.03 ng/mL (< 0.04)
[2019-03-12] MEDS ORDERED: Nitroglycerin 0.4 MG TAB.SUBL SL PRN (20:45)
[2019-03-12] MEDS ORDERED: Isovue-370 500 ML BOTTLE IVP ONE (20:48)
[2019-03-12] MEDS ORDERED: 0.9 % Sodium Chloride 1,000 ML IV ONE (20:54)
[2019-03-12] MEDS: Ipratropium/Albuterol Neb 3 ML IH PRN (23:51)
[2019-03-13 00:07] LABS: ABG Base Excess 10 mEq/L (-2 to 3); ABG HCO3 37 mEq/L (21-27); ABG Oxygen Saturation 97 % (95-98); ABG PCO2 55 mmHg (35-45); ABG PH 7.43 pH Units (7.32-7.45); ABG PO2 89 mmHg (85-104); ABG TCO2 38 mEq/L (20-26)
[2019-03-13] MEDS: Melatonin 3 MG TABLET PO PRN ×2 (00:21→22:32)
[2019-03-13 02:08] LABS: Basophils % 0.3 %; Eosinophils % 0.3 %; Hematocrit 38.3 % (37.5-50.1); Hemoglobin 11.5 g/dL (12.9-16.9); Immature Granulocytes % 2.1 % (0-4); Immature Reticulocyte % 15.2 % (11.0-38.0); Lymphocytes # 0.8 K/mcL (0.6-4.6); Lymphocytes % 8.6 %; Mean Corpuscular Hemoglobin 21.8 pg (28.0-33.3); Mean Corpuscular Volume 72.7 fL (83.0-100.0); Mean Platelet Volume 9.2 fL (9.4-12.4); Monocytes # 0.5 K/mcL (0.0-1.3); Monocytes % 4.7 %; Neutrophils # 8.1 K/mcL (1.6-8.9); Nucleated Red Blood Cells 0.7 /100 WBC (0); Platelet Count 163 K/mcL (140-400); Red Blood Count 5.27 M/mcL (4.19-5.50); Red Cell Distribution Width 18.6 % (11.5-14.5); Retculocyte # 0.07 M/mcL (0.05-0.10); Reticulocyte % 1.4 % (1.6-2.8); White Blood Count 9.6 K/mcL (4.3-11.1)
[2019-03-13 02:29] LABS: % Iron Saturation 21 % (20-55); Alanine Aminotransferase 30 Units/L (7-52); Albumin 2.9 g/dL (3.5-5.7); Albumin/Globulin Ratio 1.4 (1.1-2.2); Alkaline Phosphatase 56 Units/L (34-104); Aspartate Amino Transferase 10 Units/L (13-39); BUN/Creatinine Ratio 60 (6-26); Bilirubin,Total 0.3 mg/dL (0.3-1.0); Blood Urea Nitrogen 36 mg/dL (8-23); Calcium 8.7 mg/dL (8.6-10.3); Carbon Dioxide 34 mEq/L (23-29); Chloride 100 mEq/L (98-107); Globulin 2.1 g/dL (2.4-3.5); Glucose 119 mg/dL (70-105); Iron 50 mcg/dL (65-175); Osmolality,Calculated 289 (280-300); Phosphorous 2.7 mg/dL (2.7-4.5); Potassium 4.2 mEq/L (3.5-5.1); Sodium 135 mEq/L (136-145); Transferrin 170 mg/dL (203-362); eGFR For African Americans > 60 (> 60); eGFR For Non-African Americans > 60 (> 60)
[2019-03-13 02:48] LABS: Ferritin 115 ng/mL (20-250)
[2019-03-13 02:54] LABS: Folate 21.1 ng/mL (3.0-16.0)
[2019-03-13] MEDS: Ipratropium/Albuterol Neb 3 ML IH PRN ×3 (04:05→15:37)
[2019-03-13 07:55] LABS: Estimated Average Glucose 163 mg/dl
[2019-03-13] MEDS: Gabapentin 300 MG CAPSULE PO SCH (07:58)
[2019-03-13] MEDS: Aspirin 325 MG TABLET PO SCH (07:58)
[2019-03-13] MEDS: *HR* HYDROcodone/Acet 5/325 mg TABLET PO PRN ×2 (07:59→22:31)
[2019-03-13] MEDS: predniSONE 5 MG TABLET PO SCH (07:59)
[2019-03-13] MEDS: Budesonide/Formoterol 160/4.5 1 PUFF INH IH SCH ×2 (10:03→19:46)
[2019-03-13] MEDS ORDERED: Celecoxib 200 MG CAPSULE PO PRN (10:06)
[2019-03-13] MEDS ORDERED: E-Z-HD (BARIUM SULF) SUSPENSION PO ONE (10:44)
[2019-03-13] MEDS ORDERED: E-Z-PAQUE (BARIUM SULF) SUSP 1 BOTTLE PO ONE (10:44)
[2019-03-13] MEDS: Piperacillin/Tazobactam 3.375 GM in 0.9 % Sodium Chloride Mini Bag 100 ML IVPB SCH ×3 (11:37→22:55)
[2019-03-13] MEDS: Diltiazem CD (24hr) 120 MG CAPSULE PO SCH (11:37)
[2019-03-13] MEDS ORDERED: *HR* Rivaroxaban 10 MG TABLET PO SCH (17:00)
[2019-03-13 17:30] LABS: Amphetamine Screen,Urine Negative ng/mL (Cutoff=1000); Barbiturate Screen,Urine Negative ng/mL (Cutoff=200); Benzodiazepines Screen,Urine Positive ng/mL (Cutoff=200); Cannabinoid Screen,Urine Negative ng/mL (Cutoff = 50); Cocaine Screen,Urine Negative ng/mL (Cutoff= 300); Opiate Screen,Urine Positive ng/mL (Cutoff=300); Phencyclidine Screen,Urine Negative ng/mL (Cutoff=25)
[2019-03-13] MEDS ORDERED: traZODone 50 MG TABLET PO PRN (21:00)
[2019-03-14] MEDS ORDERED: 0.9 % Sodium Chloride 1,000 ML IVC SCH (03:15)
[2019-03-14 04:07] LABS: Hematocrit 37.8 % (37.5-50.1); Hemoglobin 11.4 g/dL (12.9-16.9); Mean Corpuscular HGB Conc 30.2 g/dL (31.6-35.5); Mean Corpuscular Hemoglobin 21.7 pg (28.0-33.3); Mean Corpuscular Volume 71.9 fL (83.0-100.0); Platelet Count 145 K/mcL (140-400); Red Blood Count 5.26 M/mcL (4.19-5.50); Red Cell Distribution Width 18.3 % (11.5-14.5); White Blood Count 8.7 K/mcL (4.3-11.1)
[2019-03-14 04:08] LABS: Mean Platelet Volume 8.5 fL (9.4-12.4)
[2019-03-14] MEDS: Fluconazole 400 MG/200 ML 400 MG/200 ML BAG IVPB SCH ×2 (04:13→06:56)
[2019-03-14] MEDS: 0.9 % Sodium Chloride 1,000 ML IVC SCH ×2 (04:13→16:36)
[2019-03-14 04:23] LABS: BUN/Creatinine Ratio 52 (6-26); Blood Urea Nitrogen 25 mg/dL (8-23); Calcium 8.6 mg/dL (8.6-10.3); Carbon Dioxide 32 mEq/L (23-29); Chloride 97 mEq/L (98-107); Glucose 127 mg/dL (70-105); Osmolality,Calculated 286 (280-300); Potassium 3.9 mEq/L (3.5-5.1); Sodium 135 mEq/L (136-145); eGFR For African Americans > 60 (> 60); eGFR For Non-African Americans > 60 (> 60)
[2019-03-14] MEDS: Budesonide/Formoterol 160/4.5 1 PUFF INH IH SCH ×2 (07:50→20:07)
[2019-03-14] MEDS: Piperacillin/Tazobactam 3.375 GM in 0.9 % Sodium Chloride Mini Bag 100 ML IVPB SCH ×2 (09:08→16:36)
[2019-03-14] MEDS: predniSONE 5 MG TABLET PO SCH (09:09)
[2019-03-14] MEDS: Diltiazem CD (24hr) 120 MG CAPSULE PO SCH (09:09)
[2019-03-14] MEDS: Gabapentin 300 MG CAPSULE PO SCH (09:09)
[2019-03-14] MEDS: Aspirin 325 MG TABLET PO SCH (09:09)
[2019-03-14] MEDS: Ipratropium/Albuterol Neb 3 ML IH PRN ×2 (11:06→15:51)
[2019-03-15] MEDS: Piperacillin/Tazobactam 3.375 GM in 0.9 % Sodium Chloride Mini Bag 100 ML IVPB SCH ×4 (00:47→22:57)
[2019-03-15] MEDS ORDERED: Acetaminophen IV 1,000 MG/100 ML INFUS..BTL IVPB ONE (01:04)
[2019-03-15] MEDS ORDERED: Dextrose Gel 15 GM/37.5 ML TUBE PO PRN ×2 (02:19)
[2019-03-15] MEDS ORDERED: D5% in Water 1,000 ML IVC PRN (02:19)
[2019-03-15] MEDS ORDERED: *HR* Dextrose 50 % in Water (Syg) 50 ML SYRINGE IVP PRN (02:19)
[2019-03-15] MEDS: 0.9 % Sodium Chloride 1,000 ML IVC SCH ×3 (02:58→20:40)
[2019-03-15 04:56] LABS: Hematocrit 36.9 % (37.5-50.1); Mean Corpuscular HGB Conc 29.8 g/dL (31.6-35.5); Mean Corpuscular Hemoglobin 21.7 pg (28.0-33.3); Mean Corpuscular Volume 72.8 fL (83.0-100.0); Mean Platelet Volume 9.9 fL (9.4-12.4); Platelet Count 160 K/mcL (140-400); Red Blood Count 5.07 M/mcL (4.19-5.50); White Blood Count 9.6 K/mcL (4.3-11.1)
[2019-03-15 05:11] LABS: BUN/Creatinine Ratio 43 (6-26); Blood Urea Nitrogen 19 mg/dL (8-23); Calcium 8.1 mg/dL (8.6-10.3); Carbon Dioxide 29 mEq/L (23-29); Chloride 97 mEq/L (98-107); Glucose 112 mg/dL (70-105); Osmolality,Calculated 285 (280-300); Potassium 3.7 mEq/L (3.5-5.1); Sodium 136 mEq/L (136-145); eGFR For African Americans > 60 (> 60); eGFR For Non-African Americans > 60 (> 60)
[2019-03-15] MEDS ORDERED: *HR* Metoprolol 5 MG/5 ML VIAL IVP PRN (08:58)
[2019-03-15] MEDS: Aspirin 325 MG TABLET PO SCH (09:02)
[2019-03-15] MEDS: Gabapentin 300 MG CAPSULE PO SCH (09:03)
[2019-03-15] MEDS: predniSONE 5 MG TABLET PO SCH (09:03)
[2019-03-15] MEDS: Diltiazem CD (24hr) 120 MG CAPSULE PO SCH ×2 (09:03→15:04)
[2019-03-15] MEDS: Budesonide/Formoterol 160/4.5 1 PUFF INH IH SCH ×2 (10:47→20:57)
[2019-03-15] MEDS: Fluconazole 400 MG/200 ML 400 MG/200 ML BAG IVPB SCH (12:08)
[2019-03-15] MEDS ORDERED: *HR* Metoprolol 5 MG/5 ML VIAL IVP ONE (14:22)
[2019-03-15] MEDS: Ipratropium/Albuterol Neb 3 ML IH PRN (14:29)
[2019-03-15] MEDS: *HR* HYDROcodone/Acet 5/325 mg TABLET PO PRN (15:04)
[2019-03-15] MEDS: clonazePAM 1 MG TABLET PO PRN (22:57)
[2019-03-16] MEDS: 0.9 % Sodium Chloride 1,000 ML IVC SCH ×4 (05:14→21:49)
[2019-03-16 05:41] LABS: Hematocrit 37.3 % (37.5-50.1); Hemoglobin 11.1 g/dL (12.9-16.9); Mean Corpuscular HGB Conc 29.8 g/dL (31.6-35.5); Mean Platelet Volume 9.8 fL (9.4-12.4); Platelet Count 155 K/mcL (140-400); Red Blood Count 5.04 M/mcL (4.19-5.50); Red Cell Distribution Width 18.2 % (11.5-14.5); White Blood Count 10.6 K/mcL (4.3-11.1)
[2019-03-16 06:03] LABS: BUN/Creatinine Ratio 29 (6-26); Blood Urea Nitrogen 14 mg/dL (8-23); Calcium 8.1 mg/dL (8.6-10.3); Carbon Dioxide 30 mEq/L (23-29); Chloride 99 mEq/L (98-107); Glucose 90 mg/dL (70-105); Osmolality,Calculated 282 (280-300); Potassium 3.3 mEq/L (3.5-5.1); Sodium 136 mEq/L (136-145); eGFR For African Americans > 60 (> 60); eGFR For Non-African Americans > 60 (> 60)
[2019-03-16] MEDS: Ipratropium/Albuterol Neb 3 ML IH PRN ×2 (07:34→11:15)
[2019-03-16] MEDS: Budesonide/Formoterol 160/4.5 1 PUFF INH IH SCH ×2 (07:34→20:47)
[2019-03-16] MEDS: Fluconazole 400 MG/200 ML 400 MG/200 ML BAG IVPB SCH (09:41)
[2019-03-16] MEDS: Piperacillin/Tazobactam 3.375 GM in 0.9 % Sodium Chloride Mini Bag 100 ML IVPB SCH (09:42)
[2019-03-16] MEDS: Gabapentin 300 MG CAPSULE PO SCH (09:43)
[2019-03-16] MEDS: predniSONE 5 MG TABLET PO SCH (09:43)
[2019-03-16] MEDS: Diltiazem CD (24hr) 120 MG CAPSULE PO SCH (09:43)
[2019-03-16] MEDS: Aspirin 325 MG TABLET PO SCH (09:44)
[2019-03-16] MEDS: clonazePAM 1 MG TABLET PO PRN (10:49)
[2019-03-17] MEDS: *HR* HYDROcodone/Acet 5/325 mg TABLET PO PRN ×2 (02:04→16:21)
[2019-03-17 03:09] LABS: Hematocrit 33.2 % (37.5-50.1); Hemoglobin 10.2 g/dL (12.9-16.9); Mean Corpuscular HGB Conc 30.7 g/dL (31.6-35.5); Mean Corpuscular Hemoglobin 22.3 pg (28.0-33.3); Mean Corpuscular Volume 72.6 fL (83.0-100.0); Mean Platelet Volume 9.5 fL (9.4-12.4); Platelet Count 151 K/mcL (140-400); Red Blood Count 4.57 M/mcL (4.19-5.50); Red Cell Distribution Width 17.4 % (11.5-14.5); White Blood Count 9.3 K/mcL (4.3-11.1)
[2019-03-17 03:28] LABS: BUN/Creatinine Ratio 26 (6-26); Blood Urea Nitrogen 11 mg/dL (8-23); Carbon Dioxide 30 mEq/L (23-29); Chloride 102 mEq/L (98-107); Glucose 145 mg/dL (70-105); Osmolality,Calculated 280 (280-300); Potassium 3.4 mEq/L (3.5-5.1); Sodium 134 mEq/L (136-145); eGFR For African Americans > 60 (> 60); eGFR For Non-African Americans > 60 (> 60)
[2019-03-17] MEDS: Ipratropium/Albuterol Neb 3 ML IH PRN ×4 (04:38→15:52)
[2019-03-17] MEDS ORDERED: Potassium Chloride Elixir 20 MEQ/15 ML UDC PO ONE (07:26)
[2019-03-17] MEDS: Budesonide/Formoterol 160/4.5 1 PUFF INH IH SCH ×2 (07:28→20:13)
[2019-03-17] MEDS: Fluconazole 100 MG TABLET PO SCH (10:33)
[2019-03-17] MEDS: predniSONE 5 MG TABLET PO SCH (10:33)
[2019-03-17] MEDS: Gabapentin 300 MG CAPSULE PO SCH (10:33)
[2019-03-17] MEDS: Aspirin 325 MG TABLET PO SCH (10:33)
[2019-03-17] MEDS: Diltiazem CD (24hr) 120 MG CAPSULE PO SCH (10:34)
[2019-03-17] MEDS: clonazePAM 1 MG TABLET PO PRN (10:57)
[2019-03-17] MEDS: Melatonin 3 MG TABLET PO PRN (22:09)
[2019-03-18] MEDS: Budesonide/Formoterol 160/4.5 1 PUFF INH IH SCH ×2 (07:28→19:45)
[2019-03-18] MEDS: Ipratropium/Albuterol Neb 3 ML IH PRN ×3 (07:28→22:30)
[2019-03-18] MEDS: Diltiazem CD (24hr) 120 MG CAPSULE PO SCH (10:49)
[2019-03-18] MEDS: Aspirin 325 MG TABLET PO SCH (10:49)
[2019-03-18] MEDS: predniSONE 5 MG TABLET PO SCH (10:50)
[2019-03-18] MEDS: Fluconazole 100 MG TABLET PO SCH (10:50)
[2019-03-18] MEDS: clonazePAM 1 MG TABLET PO PRN (10:50)
[2019-03-18] MEDS: Gabapentin 300 MG CAPSULE PO SCH (10:50)
[2019-03-18] MEDS: *HR* HYDROcodone/Acet 5/325 mg TABLET PO PRN (10:50)
[2019-03-18] MEDS: Melatonin 3 MG TABLET PO PRN (22:04)
[2019-03-19] MEDS ORDERED: NON-FORMULARY MEDICATION 1 EACH EACH (Potassium 99 MG) PO SCH (07:45)
[2019-03-19] MEDS: Ipratropium/Albuterol Neb 3 ML IH PRN ×2 (07:46→15:23)
[2019-03-19] MEDS: Budesonide/Formoterol 160/4.5 1 PUFF INH IH SCH (07:46)
[2019-03-19] MEDS ORDERED: Vitamin B Complex/Vit C/Vit E 1 EACH TABLET PO SCH (09:00)
[2019-03-19] MEDS ORDERED: NON-FORMULARY MEDICATION 1 EACH EACH (Garlic 1,000 MG) PO SCH (09:00)
[2019-03-19] MEDS ORDERED: Cholecalciferol (D-3) 1,000 UNIT (25MCG) TABLET PO SCH (09:00)
[2019-03-19] MEDS ORDERED: amLODIPine 5 MG TABLET PO SCH (09:00)
[2019-03-19] MEDS ORDERED: Multivit/Ca/Min/Fe/FA 1 TAB TABLET PO SCH (09:00)
[2019-03-19] MEDS ORDERED: Vitamin E 200 UNIT (90MG) CAPSULE PO SCH (09:00)
[2019-03-19] MEDS ORDERED: NON-FORMULARY MEDICATION 1 EACH EACH (Omega3/Dha/Epa/Fish Oil/Vit D3 [Fish Oil + Vitamin D PO SCH (09:00)
[2019-03-19] MEDS: *HR* HYDROcodone/Acet 5/325 mg TABLET PO PRN (10:00)
[2019-03-19] MEDS: clonazePAM 1 MG TABLET PO PRN (10:00)
[2019-03-19] MEDS: Gabapentin 300 MG CAPSULE PO SCH (10:45)
[2019-03-19] MEDS: Aspirin 325 MG TABLET PO SCH (10:45)
[2019-03-19] MEDS: Diltiazem CD (24hr) 120 MG CAPSULE PO SCH (10:45)
[2019-03-19] MEDS: Fluconazole 100 MG TABLET PO SCH (10:45)
[2019-03-19] MEDS: predniSONE 5 MG TABLET PO SCH (10:45)
[2019-03-19 11:43] VITALS: BP 127/68
== END 2019-03-19 15:26 | DRG 377 ==
LOC: 2ANU 16:49 → EMEROOARM 16:49 → SUATTDRO 19:27 → 2ANU 20:20
PROVIDERS: ADMIT Internal Medicine; ATTEND Family Medicine